=== PATIENT | female | born 1965 | race Caucasian/White ===

== ENCOUNTER 2019-04-03 15:23 | Outpatient (CLI) | payer BC, OTHER, SELFPAY ==
--- NOTE | ~2019-04-03 | XR_ITS ---
EXAMINATION: XR chest 2V EXAM DATE: 04/03/2019 15:52 INDICATION: Dyspnea. Right-sided chest pain. TECHNIQUE: Frontal and lateral projections of the chest obtained and reviewed. Comparison is made to prior examination from 04/17/2017. FINDINGS: Moderate chronic hyperinflation. The lungs are clear. There are no pleural effusions. Th e cardiomediastinal silhouette is within normal limits. There is no pneumothorax suspected. The bon es and soft tissues are unremarkable. IMPRESSION: 1. No acute cardiopulmonary findings. 2. Hyperinflation. Reviewed, dictated and finalized at location A. ENTER GENERAL
--- NOTE | 2019-04-03 15:57 | ECG_ITS ---
Measurements Intervals [place] Rate: 64 P: 76 MD: 144 QRS: 81 QRSD: 82 T: 59 QT: 388 QTc: 401 Interpretive Statements SINUS RHYTHM NORMAL ECG Electronically Signed On 04-03-2019 16:26:14 COMMUNITY ENGAGEMENT COORDINATOR by Jean Sims D.O.
== END 2019-04-03 15:24 | disposition home or self-care (01) ==
PROVIDERS: PCP Family Medicine; Visit Provider Nurse Practitioner Family
DX: Z13.1 Encounter for screening for diabetes mellitus (principal); Z13.220 Encounter for screening for lipoid disorders; R07.9 Chest pain, unspecified; R06.00 Dyspnea, unspecified; R53.82 Chronic fatigue, unspecified; R63.4 Abnormal weight loss
CPT/HCPCS: 71046; 93005

== ENCOUNTER 2019-04-04 07:36 | Outpatient (CLI) | payer BC, OTHER, SELFPAY ==
[2019-04-04 09:19] LABS: Basophils Absolute Auto 0.1 K/mm3 (0.0-0.1); Basophils Percent Auto 0.8 % (0.2-1.2); Eosinophils Absolute Auto 0.1 K/mm3 (0-0.3); Eosinophils Percent Auto 1.6 % (0-4.4); Hematocrit 42.5 % (37.0-47.0); Hemoglobin 13.8 g/dL (12.0-15.0); Immature Granulocyte Absolute 0.02 K/mm3 (0.00-0.031); Immature Granulocyte Percent A 0.3 % (0-0.5); Lymphocytes Absolute Auto 2.04 K/mm3 (0.9-3.2); Lymphocytes Percent Auto 32.2 % (18.3-44.2); Mean Corpuscular HGB Conc 32.5 g/dl (32-36); Mean Corpuscular Hemoglobin 30.1 pg (26-34); Mean Corpuscular Volume 92.8 fl (80-100); Mean Platelet Volume 12.3 fl (7.4-10.4); Monocytes Absolute Auto 0.6 K/mm3 (0.1-0.6); Monocytes Percent Auto 9.6 % (2.6-8.5); Neutrophils Absolute Auto 3.5 K/mm3 (1.3-6.7); Neutrophils Percent Auto 55.5 % (45.5-73.1); Platelet Count Result 179 k/mm3 (150-375); Red Blood Count 4.58 M/mm3 (4.2-5.4); Red Cell Distribution Width 12.5 % (11.5-14.5); White Blood Count 6.3 K/mm3 (4.5-10.0)
[2019-04-04 09:32] LABS: Blood Urea Nitrogen 17 mg/dL (7-17); Calcium 9.4 mg/dL (8.4-10.2); Carbon Dioxide 31 mmol/L (22-30); Chloride 96 mmol/L (98-107); Cholesterol 190 mg/dL (0-200); Estimated Glomerular Filt Rate > 60; Glucose 87 mg/dL (65-105); HDL Direct 53 mg/dL; Potassium 4.2 mmol/L (3.4-5.0); Sodium 141 mmol/L (137-145); Triglycerides 49 mg/dL (<150)
[2019-04-04 09:43] LABS: LDL Cholesterol Direct 115 mg/dL
[2019-04-04 11:38] LABS: Vitamin D 25 Hydroxy 46.6 ng/mL
== END 2019-04-04 07:37 | disposition home or self-care (01) ==
PROVIDERS: PCP Family Medicine; Visit Provider Nurse Practitioner Family
DX: Z13.1 Encounter for screening for diabetes mellitus (principal); R53.82 Chronic fatigue, unspecified; R63.4 Abnormal weight loss; Z13.220 Encounter for screening for lipoid disorders
CPT/HCPCS: 36415; 80048; 80061; 82306; 82607; 84443; 85025

== ENCOUNTER 2019-04-29 14:19 | Outpatient (CLI) | payer BC, OTHER, SELFPAY ==
--- NOTE | 2019-04-30 11:44 | WPDPFTINT ---
PFT Interpretation PFT Interpretation: This PFT met all criteria for ATS standards and reproducibility FEV/FVC post bronchodilator 70% of predicted FEV1 96% FVC 104% TLC 114% RV 124% RV/TLC 40% DLCO 100% when adjusted for alveolar volume but not adjusted for hemoglobin Flow volume loops were normal. Impression: Borderline small airway obstruction may be present, mild air trapping. Clinical correlation is advised.
== END 2019-04-29 14:20 | disposition home or self-care (01) ==
PROVIDERS: PCP Family Medicine; Visit Provider Nurse Practitioner Family
DX: R09.89 Other specified symptoms and signs involving the circulatory and respiratory systems (principal)
CPT/HCPCS: 94060; 94726; 94729

== ENCOUNTER 2019-10-10 16:31 | Outpatient (CLI) | payer BC, OTHER, SELFPAY ==
--- NOTE | ~2019-10-10 | MM_ITS ---
EXAMINATION: MM screening scotty BI w rickie HISTORY: Screening mammogram, family history of breast cancer in her mother. TECHNIQUE: Craniocaudal and mediolateral oblique 3-D tomosynthesis images were obtained and synthetic 2-D images were generated. CAD analysis was submitted and interpreted. COMPARISON: 09/30/2018, 09/07/2018, 08/17/2017 BREAST PARENCHYMAL COMPOSITION: The breasts are heterogeneously dense, which may obscure small masses . FINDINGS: There is no evidence of suspicious mass, calcification, or architectural distortion to sugg est malignancy in either breast. There has been no suspicious interval change. IMPRESSION: 1. No mammographic evidence of malignancy. 2. Recommend routine screening mammography in one year. BI-RADS Category 1: Negative Reviewed, dictated and finalized at location A.
== END 2019-10-10 16:32 | disposition home or self-care (01) ==
LOC: ANHIMG 16:38
PROVIDERS: PCP Family Medicine
DX: Z12.31 Encounter for screening mammogram for malignant neoplasm of breast (principal)
CPT/HCPCS: 77063; 77067

== ENCOUNTER 2020-02-27 06:54 | Outpatient (NON) | payer BC, OTHER, SELFPAY ==
[2020-02-27 22:46] LABS: SARS-CoV-2 RNA PCR Negative
== END 2020-02-27 06:55 ==
LOC: ANHCOVIDDT 06:55
PROVIDERS: PCP Family Medicine; Visit Provider Physician Assistant Medical
DX: Z20.822 Contact with and (suspected) exposure to COVID-19 (principal); R68.89 Other general symptoms and signs
CPT/HCPCS: C9803; U0003; U0005

== ENCOUNTER → 2020-03-12 11:14 | Outpatient (CLI) | payer BC, OTHER, SELFPAY ==
--- NOTE | ~2020-03-12 | XR_ITS ---
EXAMINATION: XR chest 2V DATE: 03/12/2020 11:32 INDICATION: Acute upper respiratory infection. TECHNIQUE: Frontal and lateral views of the chest were obtained. COMPARISON: Chest 2 views 04/03/2019 FINDINGS: The chest demonstrates clear lungs without pneumonia, pleural effusion, or pneumothorax. Th e heart size is normal. IMPRESSION: 1. No acute cardiopulmonary disease. Reviewed, dictated and finalized at location A. ECTION WARDEN
== END ==
PROVIDERS: PCP Family Medicine; Visit Provider Nurse Practitioner Family
DX: J06.9 Acute upper respiratory infection, unspecified (principal)
CPT/HCPCS: 71046

== ENCOUNTER 2020-03-17 06:52 | Outpatient (NON) | payer BC, OTHER, SELFPAY ==
[2020-03-18 00:37] LABS: SARS-CoV-2 RNA PCR Positive
== END 2020-03-17 06:53 ==
LOC: ANHCOVIDDT 06:53
PROVIDERS: PCP Family Medicine; Visit Provider Nurse Practitioner Family
DX: U07.1 COVID-19 (principal)
CPT/HCPCS: C9803; U0003; U0005

== ENCOUNTER 2020-05-11 00:57 | Day surgery (SDC) | payer BC, OTHER, SELFPAY ==
--- NOTE | ~2020-05-11 | XR_ITS ---
XR shoulder RT 1V 05/11/2020 11:51 Indication: Postop manipulation and injection of the right shoulder Procedure: AP portable view of the right shoulder Comparison: 01/29/2020 Findings: No fracture, subluxation or dislocation. Anatomic alignment. Visualized lung parenchyma unr emarkable. No lytic or blastic lesions. Impression: 1: No significant bone or joint abnormality. Reviewed, dictated and finalized at location B. Impression: 1: No significant bone or joint abnormality.
--- NOTE | 2020-05-11 09:10 | WPDANESEPPF ---
Anes - Initial Pre Proc Eval Procedure: Operation Date: 05/11/20 11:30 Proposed Procedures p Evaluation Under Anesthesia With Manipulation And Injection To The Right Shoulder - Srikanth Kaminski MD Date/Time: 05/11/20 09:10 Surgeon: Srikanth Kaminski MD Pre Op Diagnosis: Right Frozen Shoulder Patient Data Age: 55 Gender: F Height: 1.65 m Weight: 54.5 kg Allergies Allergy/AdvReac Type Severity Reaction Status Date / Time No Known Allergies Allergy Verified 05/01/20 13:57 Home Medications Medication Instructions Recorded Confirmed Type estradiol 0.5 mg tablet 0.5 mg PO DAILY 01/29/20 05/11/20 History progesterone micronized 100 mg 100 mg PO 01/29/20 05/06/20 History capsule multivit with min-folic acid 2 tablet PO DAILY 05/01/20 05/11/20 History [Multivitamin Gummies] Patient hx anesthesia problems: none Family hx anesthesia problems: none PMFSH Past Medical History Medical History Adhesive capsulitis of right shoulder Surgical History Surgical History (Updated 05/11/20 @ 09:11 by Michael Sanders MD) H/O microdiscectomy H/O tubal ligation Family History Family History Other Cerebrovascular accident Family history of malignant neoplasm of breast Hypertension Social History Social History Smoking status: Never smoker Alcohol intake: current Drinks per week: 6 Substance use: current Substance use type: does not use Living arrangements: with family Additional occupation/education comments: [employer] Gender identity (if verbalized by the patient): Female Spiritual care concerns: No Anes - Eval Final PreProcedure Day of Procedure 05/11/20 09:10 Patient weight: normal Heart: regular rate and rhythm Lungs: clear to auscultation and normal air movement Airway: Mallampati scale class II Neurological: alert and oriented Last oral intake: >/= 8 hours ASA classification: I Emergent: no Anesthetic plan: proceed Anesthesia type and monitoring: general GIVS Informed Consent: The patient's anesthetic plan and its attendant risks and benefits were discussed with the patient/family/POA. Questions were solicited and answers provided to the satisfaction of the patient/family/POA.
[2020-05-11] MEDS: ACETAMINOPHEN 500 MG TABLET 1000 MG PO (09:59)
[2020-05-11] MEDS: LACTATED RINGERS 1,000 ML 30 ML IV CONT (10:10)
[2020-05-11] MEDS: KETOROLAC 15 MG/ML VIAL (*BKC) IV PUSH (10:11)
[2020-05-11 10:16] VITALS: BP 119/62; PULSE 81; TEMP 36.6; O2SAT 100
--- NOTE | 2020-05-11 10:44 | WPDHPUPDATE1 ---
History and Physical Update Update Date/Time: 05/11/20 10:44 History and Physical has been reviewed, including an updated exam of the patient. There are NO changes in the patient's condition. Risks, benefits, and alternatives have been discussed and questions answered. Patient agrees to proceed with procedure.
[2020-05-11] MEDS: SCOPOLAMINE 1.5 MG PATCH TRANSDERM (10:50)
[2020-05-11] MEDS: TRIAMCINOLONE ACET INJ SUSP 50 MG/5 ML VIAL 20 MG IM (11:05)
[2020-05-11 11:34] VITALS: BP 81/45; PULSE 74; RESP 14; O2SAT 98
--- NOTE | 2020-05-11 11:36 | PM.PROC ---
Procedure Note - Detailed Date of procedure: 05/11/20 Pre-op diagnosis: Right Frozen Shoulder Post-op diagnosis: same Procedure performed: Evaluation under anesthesia with manipulation right shoulder. Intra-articular injection. Description of procedure: Patient was identified and proper side identified. She was taken back to the operating room and left on the patient gurney. After general anesthetic induction, the right shoulder was examined. She had passive elevation to about 120?. With the shoulder abducted 90? she had external rotation of about 30? internal rotation of about 30?. After a gentle manipulation taking the shoulder through range of motion, the elevation was now 170? and with the shoulder abducted 90? external rotation was 80?, internal rotation 80?. The shoulder was then injected intra-articularly from a posterior approach using 2 mL of 1% lidocaine and 20 mg of Kenalog without incident. She tolerated the procedure well. She was awakened and taken back to the recovery area in stable condition. There were no known intraoperative complications. Anesthesia: other (Mask general) Surgeon: Srikanth Kaminski MD Estimated blood loss (mL): 0 Drains: No Packing: No Pathology: none sent Complications: No immediate complications Condition: stable Disposition: same day
[2020-05-11 12:00] VITALS: BP 99/59; PULSE 66; O2SAT 97
[2020-05-11] MEDS: fentaNYL CITRATE INJ (*CRX) 100 MCG/2 ML VIAL 25 MCG IV PUSH ×4 (12:00→12:17)
[2020-05-11] MEDS: oxyCODONE HCL (*CRX) 5 MG TAB IR PO (12:20)
[2020-05-11 12:30] VITALS: BP 98/52; PULSE 62; RESP 14; O2SAT 98
[2020-05-11 13:00] VITALS: BP 90/55; PULSE 70; RESP 16; O2SAT 100
== END 2020-05-11 13:12 | disposition home or self-care (01) ==
PROVIDERS: PCP Family Medicine; Visit Provider Orthopaedic Surgery
PROC: (CPT 23700; principal; 2020-05-11 11:30)
DX: M75.01 Adhesive capsulitis of right shoulder (principal)
CPT/HCPCS: 23700; 73020; A9270; J1885; J2250; J2405; J2704; J3010; J3301; J7120

== ENCOUNTER → 2020-09-04 11:37 | Outpatient (CLI) | payer BC, OTHER, SELFPAY ==
--- NOTE | ~2020-09-04 | XR_ITS ---
XR chest 2V DATE: 09/04/2020 12:06 INDICATION: Cough TECHNIQUE: 2 views COMPARISON: 03/04/2020 2 view chest FINDINGS: Normal heart size. No hilar or mediastinal enlargement. Bilateral hyperinflation. No pulmonary infiltrate or consolidation, pleural effusion or pulmonary vas cular congestion or pneumothorax. Included skeletal structures are unremarkable. IMPRESSION: Bilateral hyperinflation; no active cardiopulmonary disease Reviewed, dictated and finalized at location A.
== END ==
PROVIDERS: PCP Family Medicine; Visit Provider Family Medicine
DX: R05 Cough (principal); R91.8 Other nonspecific abnormal finding of lung field
CPT/HCPCS: 71046

== ENCOUNTER 2020-10-16 08:14 | Outpatient (CLI) | payer BC, OTHER, SELFPAY ==
--- NOTE | ~2020-10-16 | MM_ITS ---
EXAMINATION: MM screening scotty BI w rickie HISTORY: Screening TECHNIQUE: Craniocaudal and mediolateral oblique 3-D tomosynthesis images were obtained and synthetic 2-D images were generated. CAD analysis was submitted and interpreted. COMPARISON: Comparison to multiple prior studies sequentially, with oldest reviewed study dated 11/14. BREAST PARENCHYMAL COMPOSITION: The breasts are heterogeneously dense, which may obscure small masses . FINDINGS: There is no evidence of suspicious mass, calcification, or architectural distortion to sugg est malignancy in either breast. There has been no suspicious interval change. IMPRESSION: 1. No mammographic evidence of malignancy. 2. Recommend routine screening mammography in one year. BI-RADS Category 1: Negative Reviewed, dictated and finalized at location A.
== END 2020-10-16 08:15 | disposition home or self-care (01) ==
LOC: ANHIMG 08:16
PROVIDERS: PCP Family Medicine
DX: Z12.31 Encounter for screening mammogram for malignant neoplasm of breast (principal)
CPT/HCPCS: 77063; 77067

== ENCOUNTER 2021-12-16 15:51 | Outpatient (CLI) | payer BC, OTHER, SELFPAY ==
--- NOTE | ~2021-12-16 | DEXA_ITS ---
Bone Density Report Name: SUREKHA JUSTIN Age: 56 Sex: Female Ethnicity: White Date of : 1965 Indication: postmenopausal; screening for osteoporosis; Referring Provider: SHANNAN, LOGAN Study: Bone densitometry was performed. Exam Date: December 16, 2021 Accession number: [id number] Bone Density: Region BMD T-score Z-score Classification AP Spine(L1-L4) 1.106 0.5 1.8 Normal Femoral Neck (Left) 0.695 -1.4 -0.2 Osteopenia Total Hip (Left) 0.857 -0.7 0.1 Normal Femoral Neck (Right) 0.706 -1.3 -0.1 Osteopenia Total Hip (Right) 0.864 -0.6 0.2 Normal Total Hip Mean 0.860 -0.7 0.2 Normal World Health Organization criteria for BMD impression classify patients as: Normal (T-score at or above -1.0), Osteopenia (T-score between -1.0 and -2.5), or Osteoporosis (T-score at or below -2.5). 10-year Fracture Risk(1): Major Osteoporotic Fracture 6.5% Hip Fracture 0.5% Reported Risk Factors: [place] (), Neck BMD=0.695, BMI=21.0 (1) FRAX(R) Version 3.08. Fracture probability calculated for an untreated patient. Fracture probability may be lower if the patient has received treatment. Clinical Information Provided by Patient: Patient maximum height was 65 Menopause Age: 49 No regular weight bearing exercise Drinks caffeinated beverages Onset of menses at age 11 Number of children 2 Impression: The patient has low bone mass, based on the Left Femoral Neck T-score. The patient has an estimated ten-year risk of hip fracture of 0.5% and an estimated ten-year risk of major fracture of 6.5%, based on the WHO FRAX algorithm. Discussion: BONE DENSITY IS LOW AT ONE OR MORE SKELETAL SITES. This patient's lowest T-score is low at one or more skeletal sites. It meets the World Health Organization's (WHO) criteria for ?low bone mass? (T-score between -1.0 and -2.5). The patient's 10-year risk of fracture as calculated by FRAX is less than the threshold where pharmacological therapy is recommended by the National Osteoporosis Foundation (NOF). However, all treatment decisions require clinical judgment and consideration of individual patient factors, including patient preferences, comorbidities, previous drug use, risk factors not captured in the FRAX model (e.g., frailty, falls, vitamin D deficiency, increased bone turnover, interval significant decline in bone density) and possible under or overestimation of fracture risk by FRAX. The patient should follow a healthful lifestyle (good nutrition with adequate calcium and vitamin D, and appropriate weight-bearing exercise). Follow-Up: Consider repeating this study in 2 to 3 years to reassess this patient's status, or sooner if there is some new clinical indication. Reported by: RAUL on 12/16/2021 4:38:00 PM.
--- NOTE | ~2021-12-16 | MM_ITS ---
EXAMINATION: MM screening scotty BI w rickie HISTORY: Screening TECHNIQUE: Craniocaudal and mediolateral oblique 3-D tomosynthesis images were obtained and synthetic 2-D images were generated. CAD analysis was submitted and interpreted. COMPARISON: Comparison to multiple prior studies sequentially, with oldest reviewed study dated 03/25. BREAST PARENCHYMAL COMPOSITION: The breasts are heterogeneously dense, which may obscure small masses . FINDINGS: There is no evidence of suspicious mass, calcification, or architectural distortion to sugg est malignancy in either breast. There has been no suspicious interval change. IMPRESSION: 1. No mammographic evidence of malignancy. 2. Recommend routine screening mammography in one year. BI-RADS Category 1: Negative Reviewed, dictated and finalized at location A.
== END 2021-12-16 15:52 | disposition home or self-care (01) ==
PROVIDERS: PCP Family Medicine; Visit Provider Obstetrics & Gynecology
DX: Z12.31 Encounter for screening mammogram for malignant neoplasm of breast (principal); Z78.0 Asymptomatic menopausal state; M85.89 Other specified disorders of bone density and structure, multiple sites
CPT/HCPCS: 77063; 77067; 77080

== ENCOUNTER → 2022-06-03 08:23 | Outpatient (CLI) | payer BC, SELFPAY ==
--- NOTE | ~2022-06-03 | US_ITS ---
EXAMINATION: US pelvic complete DATE: 06/03/2022 08:41 INDICATION: Uterine hypertrophy. Postmenopausal. Comparison:No prior studies for comparison. TECHNIQUE: Multiple transabdominal and endovaginal sonographic images of the pelvis performed. FINDINGS: The uterus measures 6.9 x 3.3 x 3.9 cm. The endometrial complex measures 6 mm. The right ovary is not visualized. Left ovary measures 2.2 x 1.1 x 1.2 cm. There is normal Doppler si gnal in the left ovary. There is no free fluid in the pelvis. There are no abnormal masses seen on either side. IMPRESSION: 1. Thickened endomtrial complex. The differential diagnosis includes endometrial hyperplasia, polyp a nd carcinoma. Biopsy is recommended. Reviewed, dictated and finalized at location A. IMPRESSION: 1. Thickened endomtrial complex. The differential diagnosis includes endometria l hyperplasia, polyp and carcinoma. Biopsy is recommended.
== END ==
PROVIDERS: PCP Advanced Practice Midwife; Visit Provider Advanced Practice Midwife
DX: N85.2 Hypertrophy of uterus (principal); Z78.0 Asymptomatic menopausal state
CPT/HCPCS: 76856

== ENCOUNTER 2022-06-13 01:25 | Day surgery (SDC) | payer BC, SELFPAY ==
[2022-06-07 09:57] VITALS: BMI 20.7
--- NOTE | 2022-06-07 10:01 | PC.NURSE ---
Report to the Outpatient Waiting Room, entrance under the green pavilion located off [facility], at time 1000 on date 06/13/22. Planned Procedure Time: 1200. Time changes happen often and if your time is changed the preop area will call you the afternoon before. - You and your visitor will be asked to self-screen and do not enter if you have any COVID symptoms. - A mask is optional within the hospital at this time. Patients may have clear liquids (water, carbonated beverages, clear teas, apple juice) until 3 hours prior to surgery with a maximum of 20 ounces. - No food from midnight until time of surgery Take the following medications with a SIP of water the morning of surgery: BUPROPION DO NOT STOP ANY OF YOUR OTHER PRESCRIPTION MEDICATIONS PRIOR TO SURGERY EXCEPT THE FOLLOWING Medications to discontinue per physician: N/A Date to take last dose: N/A Please no make-up, nail ghanaian, hairspray, perfume, deodorant, or body powder the day of surgery. No jewelry (including any body piercings) or valuables the day of surgery, leave them at home. Please take a shower or bath the night before, or the morning of, surgery with an antibacterial soap. Wear comfortable, loose fitting clothing. - Jewelry must be removed prior to entering the operating room. Rings and piercings that are not removed may be cut off. - The hospital will not accept responsibility for valuables. - Please leave all valuables, including medications, at home the day of surgery. If you are going home after surgery, a licensed city route driver must drive you home. - NO public transportation without another adult if you receive anesthesia. - We recommend that an adult stay with you for 24 hours following discharge. - We also recommend that you do not drive, make important decision, drink alcoholic beverages, or take any drugs that were not prescribed by your health care provider for at least 24 hours after your discharge time. Follow any additional instructions given to you from your surgeon. If you or anyone in your household have experienced Covid symptoms in the past week, please notify your surgeon or the nurse liaison at the phone number below for possible testing. Telephone instructions given to PT - SUREKHA JUSTIN and asked if any additional questions and then verbalized understanding. Patient advised to call surgeon office or pre surgery nurse liaison [phone] if any additional questions.
--- NOTE | 2022-06-13 08:10 | WPDHPUPDATE1 ---
History and Physical Update Update Date/Time: 06/13/22 08:10 History and Physical has been reviewed, including an updated exam of the patient. There are NO changes in the patient's condition. Risks, benefits, and alternatives have been discussed and questions answered. Patient agrees to proceed with procedure.
--- NOTE | 2022-06-13 08:10 | PM.HPGS ---
History of Present Illness History of Present Illness Consent: Risks, benefits, and alternatives have been discussed and questions answered. Patient agrees to proceed with procedure. Chief complaint: thick endometrial lining Narrative: Jessica Patterson is a 57 year old female with an incidental finding on ultrasound of thickened endometrium. Patient denies vaginal bleeding. Recommend to proceed with further workup with hysteroscopy D&C. Risks of infection, bleeding, perforation, and possible pathology were reviewed the day of surgery. Patient voices understanding and agrees to proceed. Review of Systems Review of Systems: not repeated day of surgery; patient states no changes in status PMFSH Past Medical History Medical History (Updated 06/13/22 @ 08:14 by Radha Merrill MD) Depression with anxiety (normal spontaneous vaginal delivery) x2 Surgical History Surgical History (Updated 06/13/22 @ 08:13 by Radha Merrill MD) Adhesive capsulitis of right shoulder Evaluation under anesthesia with manipulation May 11, 2020 H/O microdiscectomy H/O tubal ligation History of endometrial ablation Family History Family History Father Aortic valve replaced Hypertension RLS (restless legs syndrome) Mother Cancer Sibling No problems noted. Sibling , suicide No problems noted. Other Cerebrovascular accident Family history of malignant neoplasm of breast Social History Social History Smoking status: Never smoker Second hand tobacco smoke exposure: Yes Alcohol intake: current Drinks per week: 6 Alcohol use details: occasional Substance use: never Substance use type: does not use Living arrangements: with family Occupation/Education: occupation Additional occupation/education comments: [employer] Gender identity (if verbalized by the patient): Female Spiritual care concerns: No Meds Home Medications and Allergies Home Medications Medication Instructions Recorded Confirmed Type bupropion HCl 150 mg 24 hr tablet, 150 mg PO QAM #90 tabs 10/12/21 06/07/22 Rx extended release (Wellbutrin XL) estradiol-norethindrone acet 1 1 tablet PO DAILY 06/07/22 06/07/22 History mg-0.5 mg tablet Allergies Allergy/AdvReac Type Severity Reaction Status Date / Time No Known Allergies Allergy Verified 06/07/22 09:55 Exam Const: General: healthy appearing and alert Orientation/consciousness: patient oriented x3 Resp: Effort & Inspection: normal respiratory effort Auscultation: clear to auscultation bilaterally Cardio: Rate: regular rate Rhythm: regular rhythm GI: GI Palp: Yes Soft to palpation, No Tenderness to palpation present (GI) and No Palpable mass present : External Female Exam: normal external appearance Speculum Exam - Vagina: normal appearance of the vagina and normal vaginal discharge Speculum Exam - Cervix: normal appearance of the cervix Bimanual exam- vagina & uterus: uterine size normal and consistency normal Bimanual Exam- Adnexa, other: normal adnexae and No adnexal tenderness Neuro: General: patient oriented x3 Assessment and Plan Assessment and plan (1) Thickened endometrium: Code(s): R93.89 - Abnormal findings on diagnostic imaging of other specified body structures Status: Acute Assessment and Plan: plan to proceed with D&C hysteroscopy
[2022-06-13 10:19] VITALS: BP 117/60; PULSE 77; RESP 16; TEMP 37.5; O2SAT 100
[2022-06-13] MEDS: ACETAMINOPHEN 500 MG TABLET 1000 MG PO (10:39)
[2022-06-13] MEDS: LACTATED RINGERS 1,000 ML 30 ML IV CONT ×2 (10:40→11:56)
--- NOTE | 2022-06-13 11:16 | WPDANESEPP ---
Anes - Eval Pre Procedure Procedure: Operation Date: 06/13/22 12:00 Proposed Procedures p Hysteroscopy, Dilation and Curettage - Radha Merrill MD Date/Time: 06/13/22 11:16 Pre Op Diagnosis: thick endometrial lining Patient Data Age: 57 Gender: F Height: 1.65 m Weight: 55.9 kg Last Vital Signs Temp 37.5 C 06/13/22 10:19 Pulse 77 06/13/22 10:19 Resp 16 06/13/22 10:19 BP 117/60 06/13/22 10:19 Pulse Ox 100 06/13/22 10:19 O2 Del Method Room Air 06/13/22 10:19 Allergies Allergy/AdvReac Type Severity Reaction Status Date / Time No Known Allergies Allergy Verified 06/13/22 10:47 Home Medications Medication Instructions Recorded Confirmed Type bupropion HCl 150 mg 24 hr tablet, 150 mg PO QAM #90 tabs 10/12/21 06/13/22 Rx extended release (Wellbutrin XL) estradiol-norethindrone acet 1 1 tablet PO DAILY 06/07/22 06/13/22 History mg-0.5 mg tablet Patient hx anesthesia problems: none Family hx anesthesia problems: none Results Review: All pre-operative results and documents have been reviewed as part of the pre-operative evaluation. [facility] Past Medical History Medical History (Updated 06/13/22 @ 08:14 by Radha Merrill MD) Depression with anxiety (normal spontaneous vaginal delivery) x2 Surgical History Surgical History (Updated 06/13/22 @ 08:13 by Radha Merrill MD) Adhesive capsulitis of right shoulder Evaluation under anesthesia with manipulation May 11, 2020 H/O microdiscectomy H/O tubal ligation History of endometrial ablation Family History Family History Father Aortic valve replaced Hypertension RLS (restless legs syndrome) Mother Cancer Sibling No problems noted. Sibling , suicide No problems noted. Other Cerebrovascular accident Family history of malignant neoplasm of breast Social History Social History Smoking status: Never smoker Second hand tobacco smoke exposure: Yes Alcohol intake: current Drinks per week: 6 Alcohol use details: occasional Substance use: never Substance use type: does not use Living arrangements: with family Occupation/Education: occupation Additional occupation/education comments: [employer] Gender identity (if verbalized by the patient): Female Spiritual care concerns: No Exam Day of Procedure 06/13/22 11:16
--- NOTE | 2022-06-13 11:24 | WPDANESEPPF ---
Anes - Initial Pre Proc Eval Procedure: Operation Date: 06/13/22 12:00 Proposed Procedures p Hysteroscopy, Dilation and Curettage - Radha Merrill MD Date/Time: 06/13/22 11:24 Surgeon: Radha Merrill MD Pre Op Diagnosis: thick endometrial lining Patient Data Age: 57 Gender: F Height: 1.65 m Weight: 55.9 kg Last Vital Signs Temp 37.5 C 06/13/22 10:19 Pulse 77 06/13/22 10:19 Resp 16 06/13/22 10:19 BP 117/60 06/13/22 10:19 Pulse Ox 100 06/13/22 10:19 O2 Del Method Room Air 06/13/22 10:19 Allergies Allergy/AdvReac Type Severity Reaction Status Date / Time No Known Allergies Allergy Verified 06/13/22 10:47 Home Medications Medication Instructions Recorded Confirmed Type bupropion HCl 150 mg 24 hr tablet, 150 mg PO QAM #90 tabs 10/12/21 06/13/22 Rx extended release (Wellbutrin XL) estradiol-norethindrone acet 1 1 tablet PO DAILY 06/07/22 06/13/22 History mg-0.5 mg tablet Patient hx anesthesia problems: none Family hx anesthesia problems: none Results Review: All pre-operative results and documents have been reviewed as part of the pre-operative evaluation. [facility] Past Medical History Medical History (Updated 06/13/22 @ 08:14 by Radha Merrill MD) Depression with anxiety (normal spontaneous vaginal delivery) x2 Surgical History Surgical History (Updated 06/13/22 @ 08:13 by Radha Merrill MD) Adhesive capsulitis of right shoulder Evaluation under anesthesia with manipulation May 11, 2020 H/O microdiscectomy H/O tubal ligation History of endometrial ablation Family History Family History Father Aortic valve replaced Hypertension RLS (restless legs syndrome) Mother Cancer Sibling No problems noted. Sibling , suicide No problems noted. Other Cerebrovascular accident Family history of malignant neoplasm of breast Social History Social History Smoking status: Never smoker Second hand tobacco smoke exposure: Yes Alcohol intake: current Drinks per week: 6 Alcohol use details: occasional Substance use: never Substance use type: does not use Living arrangements: with family Occupation/Education: occupation Additional occupation/education comments: [employer] Gender identity (if verbalized by the patient): Female Spiritual care concerns: No Anes - Eval Final PreProcedure Day of Procedure 06/13/22 11:24 Patient weight: normal Heart: regular rate and rhythm Lungs: clear to auscultation and normal air movement Airway: Mallampati scale class II Neurological: alert and oriented Last oral intake: >/= 8 hours ASA classification: I Emergent: no Anesthetic plan: proceed Anesthesia type and monitoring: general GIVS Results Review: All pre-operative results and documents have been reviewed as part of the pre-operative evaluation. Informed Consent: The patient's anesthetic plan and its attendant risks and benefits were discussed with the patient/family/POA. Questions were solicited and answers provided to the satisfaction of the patient/family/POA.
[2022-06-13] MEDS: KETOROLAC 30 MG/ML VIAL (*BKC) IV PUSH (11:30)
[2022-06-13] MEDS: LIDOCAINE HCL 1% LOCAL INJ 20 ML VIAL 10 ML INFILTRATE (11:46)
--- NOTE | 2022-06-13 11:51 | P.OP_ITS ---
Procedure Note - Detailed Date of Procedure 06/13/22 Pre-op Diagnosis thick endometrial lining Post-op Diagnosis Same Procedure Performed Hysteroscopy Surgeon Radha Merrill MD Anesthesia MAC and Local Findings cervix is very stenotic Description of Procedure The patient is taken to the operating room and placed under anesthesia in the dorsal lithotomy position. She was prepped and draped in usual sterile fashion. [place] speculum was placed in the vagina and the cervix grasped on the anterior lip with a tenaculum. The cervix is injected in each quadrant with 1% lidocaine. The uterus is attempted to be sounded and severe stenosis is noted at approximately 1cm. Os Finders are used and the 4/5 dilator was used to open the cervical canal. The uterus sounded to 8cm. The diagnostic hysteroscope was placed and did appear to be a false passage with a small perforation fundal. The hysteroscope was slowly retracted and no obvious proper canal was noted. All instruments were removed. The fluid deficit is only 90cc. The patient was awakened from anesthesia and taken to recovery in stable condition. Estimated Blood Loss 5 Drains No Packing No Pathology None sent Complications Other complications ( Uterine perforation) Condition Stable Disposition PACU
[2022-06-13 11:56] VITALS: BP 97/58; PULSE 92; RESP 12; O2SAT 100
[2022-06-13 12:20] VITALS: BP 108/64; PULSE 92; RESP 20
[2022-06-13 12:50] VITALS: BP 128/70; PULSE 72; RESP 20
[2022-06-13 13:20] VITALS: BP 127/77; PULSE 74; RESP 20
== END 2022-06-13 13:25 | disposition home or self-care (01) ==
PROVIDERS: PCP Family Medicine; Visit Provider Obstetrics & Gynecology Gynecology
PROC: 0U5B8ZZ Destruction of Endometrium, Via Natural or Artificial Opening Endoscopic (ICD-10-PCS; CPT 58563; principal; 2022-06-13 12:00)
DX: R93.89 Abnormal findings on diagnostic imaging of other specified body structures (principal); N88.2 Stricture and stenosis of cervix uteri; N99.71 Accidental puncture and laceration of a genitourinary system organ or structure during a genitourinary system procedure; F41.8 Other specified anxiety disorders
CPT/HCPCS: 58558; A9270; J1100; J1200; J1885; J2250; J2405; J2704; J3010; J7120

== ENCOUNTER 2022-07-25 00:11 | Day surgery (SDC) | payer BC, SELFPAY ==
[2022-07-18 14:52] VITALS: BMI 21.2
--- NOTE | 2022-07-18 14:58 | PC.NURSE ---
Report to the Outpatient Waiting Room, entrance under the green pavilion located off [facility], at time _0815__ on date __07/25/22_. Planned Procedure Time: _1015_. Time changes happen often and if your time is changed the preop area will call you the afternoon before. - You and your visitor will be asked to self-screen and do not enter if you have any COVID symptoms. - A mask is optional within the hospital at this time. Patients may have clear liquids (water, carbonated beverages, clear teas, apple juice) until 3 hours prior to surgery with a maximum of 20 ounces. - No food from midnight until time of surgery - Infants may have breast milk until 4 hours before surgery, infant formula 6 hours prior to surgery. - Children will be allowed to drink immediately following surgery. If applicable, please bring a bottle or sippy cup to assist with drinking. Juice, water, soda, and popsicles are readily available. For infants on formula, please bring formula the day of surgery. Pacifiers are allowed. Take the following medications with a SIP of water the morning of surgery: ___NONE DO NOT STOP ANY OF YOUR OTHER PRESCRIPTION MEDICATIONS PRIOR TO SURGERY ?EXCEPT THE FOLLOWING Medications to discontinue per physician NONE Date to take last dose Please no make-up, nail albanian, hairspray, perfume, deodorant, or body powder the day of surgery. No jewelry (including any body piercings) or valuables the day of surgery, leave them at home. Please take a shower or bath the night before, or the morning of, surgery with an antibacterial soap. Wear comfortable, loose fitting clothing. Children are encouraged to wear pajamas. - Jewelry must be removed prior to entering the operating room. Rings and piercings that are not removed may be cut off. - The hospital will not accept responsibility for valuables. - Please leave all valuables, including medications, at home the day of surgery. If you are going home after surgery, a licensed trailer tank truck driver must drive you home. - NO public transportation without another adult if you receive anesthesia. - We recommend that an adult stay with you for 24 hours following discharge. - We also recommend that you do not drive, make important decision, drink alcoholic beverages, or take any drugs that were not prescribed by your health care provider for at least 24 hours after your discharge time. For Pediatric surgeries, we recommend two adults accompany the child home. Follow any additional instructions given to you from your surgeon. If you or anyone in your household have experienced Covid symptoms in the past week, please notify your surgeon or the nurse liaison at the phone number below for possible testing. Telephone instructions given to _PATIENT__and asked if any additional questions and then verbalized understanding. Patient advised to call surgeon office or pre surgery nurse liaison [phone] if any additional questions.
--- NOTE | 2022-07-25 07:34 | WPDHPUPDATE1 ---
History and Physical Update Update Date/Time: 07/25/22 07:34 History and Physical has been reviewed, including an updated exam of the patient. There are NO changes in the patient's condition. Risks, benefits, and alternatives have been discussed and questions answered. Patient agrees to proceed with procedure.
--- NOTE | 2022-07-25 07:34 | PM.HPGS ---
History of Present Illness History of Present Illness Consent: Risks, benefits, and alternatives have been discussed and questions answered. Patient agrees to proceed with procedure. Chief complaint: Thickened Endometrial Lining Narrative: Jessica Patterson is a 57 year old female with a thickened endometrium on pelvic ultrasound of 6mm. Patient denies vaginal bleeding. It was recommended to proceed with further workup with D&C hysteroscopy. Risks of infection, bleeding perforation, and possible pathology are discussed. Patient was given Cytotec 1000mcg daily for 7 days prior to the surgery due to prior severe stenosis and perforation. Patient underwent attempted hysteroscopy 06/13/22 which resulted in a false passage and a fundal perforation. Patient voices understanding and agrees to proceed. Review of Systems Review of Systems: not repeated day of surgery; patient states no changes in status PMFSH Past Medical History Medical History (Updated 06/13/22 @ 08:14 by Radha Merrill MD) Depression with anxiety (normal spontaneous vaginal delivery) x2 Surgical History Surgical History (Updated 07/25/22 @ 07:37 by Radha Merrill MD) Adhesive capsulitis of right shoulder Evaluation under anesthesia with manipulation May 11, 2020 H/O microdiscectomy H/O tubal ligation History of endometrial ablation History of hysteroscopy 06/13/22-perforation Family History Family History Father Aortic valve replaced Hypertension RLS (restless legs syndrome) Mother Cancer Sibling No problems noted. Sibling , suicide No problems noted. Other Cerebrovascular accident Family history of malignant neoplasm of breast Social History Social History Smoking status: Never smoker Second hand tobacco smoke exposure: Yes Alcohol intake: current Drinks per week: 10 Alcohol use details: occasional Substance use: never Substance use type: does not use Living arrangements: with family Occupation/Education: occupation Additional occupation/education comments: [employer] Gender identity (if verbalized by the patient): Female Spiritual care concerns: No Meds Home Medications and Allergies Home Medications Medication Instructions Recorded Confirmed Type bupropion HCl 150 mg 24 hr tablet, 150 mg PO QAM #90 tabs 06/22/22 Rx extended release (Wellbutrin XL) estradiol 0.05 mg/24 hr semiweekly 1 topical 2XW 07/18/22 History transdermal patch (Kiara) progesterone micronized 100 mg 100 mg PO DAILY 07/18/22 07/18/22 History capsule Allergies Allergy/AdvReac Type Severity Reaction Status Date / Time No Known Allergies Allergy Verified 07/18/22 14:49 Exam Const: General: healthy appearing and alert Orientation/consciousness: patient oriented x3 Resp: Effort & Inspection: normal respiratory effort GI: GI Palp: Yes Soft to palpation, No Tenderness to palpation present (GI) and No Palpable mass present : External Female Exam: normal external appearance Speculum Exam - Vagina: normal appearance of the vagina and normal vaginal discharge Speculum Exam - Cervix: normal appearance of the cervix Bimanual exam- vagina & uterus: uterine size normal and consistency normal Bimanual Exam- Adnexa, other: normal adnexae and No adnexal tenderness Neuro: General: patient oriented x3 Assessment and Plan Assessment and plan (1) Thickened endometrium: Code(s): R93.89 - Abnormal findings on diagnostic imaging of other specified body structures Status: Acute Assessment and Plan: Plan to proceed with D&C hysteroscopy
[2022-07-25 08:37] VITALS: BP 115/53; PULSE 90; RESP 16; TEMP 36.4; O2SAT 98
[2022-07-25] MEDS: LACTATED RINGERS 1,000 ML 30 ML IV CONT ×2 (08:50→10:16)
[2022-07-25] MEDS: ACETAMINOPHEN 500 MG TABLET 1000 MG PO (08:58)
--- NOTE | 2022-07-25 09:15 | P.PNAN_ITS ---
Anes - Initial Pre Proc Eval Procedure: Operation Date: 07/25/22 10:15 Proposed Procedures p Hysteroscopy with Dilation and Curettage - Radha Merrill MD Date/Time: 07/25/22 09:15 Surgeon: Radha Merrill MD Pre Op Diagnosis: Thickened Endometrial Lining Patient Data Age: 57 Gender: F Height: 1.65 m Weight: 58 kg Allergies Allergy/AdvReac Type Severity Reaction Status Date / Time No Known Allergies Allergy Verified 07/18/22 14:49 Home Medications Medication Instructions Recorded Confirmed Type bupropion HCl 150 mg 24 hr tablet, 150 mg PO QAM #90 tabs 06/22/22 Rx extended release (Wellbutrin XL) estradiol 0.05 mg/24 hr semiweekly 1 topical 2XW 07/18/22 History transdermal patch (Kiara) progesterone micronized 100 mg 100 mg PO DAILY 07/18/22 07/18/22 History capsule Patient hx anesthesia problems: post op nausea/vomiting Family hx anesthesia problems: none Results Review: All pre-operative results and documents have been reviewed as part of the pre- operative evaluation. [facility] Past Medical History Medical History Depression with anxiety (normal spontaneous vaginal delivery) x2 Surgical History Surgical History Adhesive capsulitis of right shoulder Evaluation under anesthesia with manipulation May 11, 2020 H/O microdiscectomy H/O tubal ligation History of endometrial ablation History of hysteroscopy 06/13/22-perforation Family History Family History Father Aortic valve replaced Hypertension RLS (restless legs syndrome) Mother Cancer Sibling No problems noted. Sibling , suicide No problems noted. Other Cerebrovascular accident Family history of malignant neoplasm of breast Social History Social History Smoking status: Never smoker Second hand tobacco smoke exposure: Yes Alcohol intake: current Drinks per week: 10 Alcohol use details: occasional Substance use: never Substance use type: does not use Living arrangements: with family Occupation/Education: occupation Additional occupation/education comments: [employer] Gender identity (if verbalized by the patient): Female Spiritual care concerns: No Anes - Eval Final PreProcedure Day of Procedure 07/25/22 09:15 Patient weight: normal Heart: regular rate and rhythm Lungs: clear to auscultation Airway: Mallampati scale class 1 Neurological: alert and oriented Last oral intake: >/= 8 hours ASA classification: II Emergent: no Anesthetic plan: proceed Anesthesia type and monitoring: general GIVS and standard monitoring Results Review: All pre-operative results and documents have been reviewed as part of the pre- operative evaluation. Informed Consent: The patient's anesthetic plan and its attendant risks and benefits were discussed with the patient/family/POA. Questions were solicited and answers provided to the satisfaction of the patient/family/POA.
[2022-07-25] MEDS: SCOPOLAMINE 1.5 MG PATCH TRANSDERM (09:45)
[2022-07-25] MEDS: LIDOCAINE HCL 1% LOCAL INJ 20 ML VIAL 10 ML INFILTRATE (10:04)
[2022-07-25 10:16] VITALS: BP 84/44; PULSE 76; RESP 12; O2SAT 99
--- NOTE | 2022-07-25 10:16 | W.PM.PROC2 ---
Procedure Note - Detailed Date of Procedure 07/25/22 Pre-op Diagnosis Thickened Endometrial Lining Post-op Diagnosis Same Procedure Performed D and C hysteroscopy Surgeon Radha Merrill MD Anesthesia MAC and Local Findings cervix is stenotic; endometrium has evidence of prior ablation with no gross pathology Description of Procedure The patient is taken to the operating room and placed under anesthesia in the dorsal lithotomy position. She was prepped and draped in the usual sterile fashion. [place] speculum was placed in the vagina and the cervix is grasped on the anterior lip with a tenaculum. The cervix is injected in each quadrant with 1% lidocaine. The uterus was attempted to be sounded and there is internal stenosis at 3cm. The small dilator is used and able to pass the internal stenosis. The uterus is sounded to 7cm. The hysteroscope was placed significant scarring is noted. As there were no abnormalities noted, the hysteroscope was removed slowly verifying no additional cavity opening. The sharp curette is used to curette the endometrium until a good uterine cry was noted in all areas. Minimal material was obtained consistent with the visual appearance. All instruments are removed. Patient is awakened from anesthesia and taken to recovery in stable condition. Sponge, needle, and instrument counts are correct per the OR staff. Estimated Blood Loss 5 Drains No Packing No Pathology Yes ( Endometrial curettings) Complications No immediate complications Condition Stable Disposition PACU
[2022-07-25 10:45] VITALS: BP 97/61; PULSE 70; RESP 16; O2SAT 99
[2022-07-25 11:15] VITALS: BP 133/87; PULSE 87; RESP 16
[2022-07-25 11:40] VITALS: BP 124/70; PULSE 73; RESP 16
== END 2022-07-25 11:43 | disposition home or self-care (01) ==
PROVIDERS: PCP Family Medicine; Visit Provider Obstetrics & Gynecology Gynecology
PROC: 0U5B8ZZ Destruction of Endometrium, Via Natural or Artificial Opening Endoscopic (ICD-10-PCS; CPT 58563; principal; 2022-07-25 10:15)
DX: R93.89 Abnormal findings on diagnostic imaging of other specified body structures (principal); N88.2 Stricture and stenosis of cervix uteri; F41.8 Other specified anxiety disorders
CPT/HCPCS: 58558; 88305; A9270; J2250; J2405; J2704; J3010; J7120

== ENCOUNTER 2023-04-03 15:47 | Outpatient (CLI) | payer OTHER, SELFPAY ==
--- NOTE | ~2023-04-03 | MM_ITS ---
EXAMINATION: MM screening scotty BI w rickie HISTORY: Screening TECHNIQUE: Craniocaudal and mediolateral oblique 3-D tomosynthesis images were obtained and synthetic 2-D images were generated. CAD analysis was submitted and interpreted. COMPARISON: Comparison to multiple prior studies sequentially, with oldest reviewed study dated 06/2017. BREAST PARENCHYMAL COMPOSITION: Dense: The breasts are heterogeneously dense, which may obscure small masses FINDINGS: There is a focal asymmetry superiorly in the left breast on MLO view. The right breast is s table without evidence for malignancy. IMPRESSION: 1. Focal asymmetry superiorly in the left breast on MLO view. 2. Additional mammographic views and possible breast ultrasound are recommended. BI-RADS Category 0: Incomplete: Needs additional imaging evaluation. Reviewed, dictated and finalized at location A. D ANIMAL VETERINARIAN IMPRESSION: 1. Focal asymmetry superiorly in the left breast on MLO view. 2. Additional mammographic views and possible breast ultrasound are recommended . BI-RADS Category 0: Incomplete: Needs additional imaging evaluation.
== END 2023-04-03 15:48 | disposition home or self-care (01) ==
LOC: ANHIMG 15:53
PROVIDERS: PCP Family Medicine; Visit Provider Obstetrics & Gynecology Gynecology
DX: Z12.31 Encounter for screening mammogram for malignant neoplasm of breast (principal); N64.89 Other specified disorders of breast
CPT/HCPCS: 77063; 77067

== ENCOUNTER 2023-05-08 10:16 | Outpatient (CLI) | payer OTHER, SELFPAY ==
--- NOTE | ~2023-05-08 | MMUS_ITS ---
EXAMINATION: MM diagnostic scotty LT w rickie, US breast LT limited HISTORY: Focal asymmetry reported superiorly and left breast on screening MLO view of April 03 TECHNIQUE: Additional 3-D tomosynthesis images of the left breast were performed and synthetic 2-D im ages were generated. CAD analysis was submitted and interpreted. High resolution upper outer and lowe r-outer quadrant left breast ultrasound was performed. COMPARISON: April 03, 2023 bilateral screening mammogram FINDINGS: MAMMOGRAPHIC FINDINGS: No suspicious focal mass, architectural distortion, malignant calcification, skin thickening or retra ction is evident. ULTRASOUND: There is a 3.4 mm cyst at 12:00 4 cm from nipple. There is some dense tissue at 5:00 3 cm from the nipple but no focal mass lesion or reproducible shad owing in orthogonal planes is noted. No suspicious mass or shadowing is evident. IMPRESSION: 1. Benign finding 2. Routine annual mammographic screening is recommended BI-RADS Category 2: Benign finding(s). Reviewed, dictated and finalized at location A. IMPRESSION: 1. Benign finding 2. Routine annual mammographic screening is recommended BI-RADS Category 2: Benign finding(s).
== END 2023-05-08 10:17 | disposition home or self-care (01) ==
LOC: ANHIMG 10:19
PROVIDERS: PCP Family Medicine; Visit Provider Obstetrics & Gynecology Gynecology
DX: R92.8 Other abnormal and inconclusive findings on diagnostic imaging of breast (principal)
CPT/HCPCS: 76642; 77061; 77065; G0279

== ENCOUNTER 2024-06-10 15:04 | Outpatient (CLI) | payer OTHER, SELFPAY ==
--- NOTE | ~2024-06-10 | MM_ITS ---
EXAMINATION: MM screening scotty BI w rickie HISTORY: Screening mammogram, family history of breast cancer in her mother. TECHNIQUE: Craniocaudal and mediolateral oblique 3-D tomosynthesis images were obtained and synthetic 2-D images were generated. CAD analysis was submitted and interpreted. COMPARISON: 04/03/2023, 12/16/2021, 10/16/2020, a 02/09/2019 BREAST PARENCHYMAL COMPOSITION:Dense: The breasts are heterogeneously dense, which may obscure small masses. FINDINGS: No suspicious mass, calcification, or architectural distortion are identified in either camila ast to suggest malignancy. There has been no suspicious interval change. IMPRESSION: No mammographic evidence of malignancy. Recommend routine screening mammography in one year. BI-RADS Category 1: Negative Reviewed, dictated and finalized at [facility].
--- OUTSIDE RECORDS SUMMARY | 2024-06-10 17:21 | XMS_ITS | Clinical Summary ---
Author Organization [facility] Address [address] [place] [address] Care Team Providers Care Ux Designer Name Role Phone None, Provider MD Primary Care Provider Unavaila ble Immunizations Immunization Administration Dates Next Due MODERNA COVID-19 (12+) MRNA, LNP-S, PF, 100 MCG/ 0.5 ML DOSE 06/25/2020,05/28/2020 MODERNA COVID-19 (POLLUTION CONTROL TECHNICIAN GUSTAVO MAGALY), MRNA, LNP-S, PF, 50 MCG/ 0.25 ML DOSE 02/17/2021 Social History Tobacco Use Types Packs/Day Years Used Date Smoking Tobacco: Never Assessed Comments Unknown Sex and Gender Information Value Date Recorded Sex Assigned at Not on file Legal Sex Female 11:25 AM CDT Gender Identity Not on file Sexual Orientation Not on file Plan of Treatment Health Maintenance Due Date Last Done Comments Cervical Cancer Screening Pa p Smear (Age 30 to 64) Every 3 Years 1964 Colorectal Cancer Screening Colonoscopy (10 Years) 1964 Annual Physical 05/08/1967 Hepatitis C 1982 DTaP, Tdap and Td Vaccines ( 1 - Tdap) 05/08/1983 Cervical Cancer Screening Pa p with HPV Testing (Age 30 to 64) Every 5 Years 1994 Cervical Cancer Screening wi th HPV 1994 Mammogram Screening 2004 Pneumococcal Vaccine: 50+ Years (1 of 1 - PCV) 2014 Zoster Vaccines (1 of 2) 2014 COVID-19 Vaccine (2023-2 5 season) 2023 02/17/2021, 06/25/2020, 05/28/2020 RSV Immunization or 60+ Years (1 - 1-dose 75+ series) 05/08/2039 Meningococcal B Vaccine Aged Out No l onger eligible based on patient's age to complete this topic Meningococcal Vaccine Aged Out No satya santos eligible based on patient's age to complete this topic RSV Immunizations Under 20 Months Aged Out No longer eligible b ased on patient's age to complete this topic Insurance [employer] [facility] Advance Directives Documents on File Type Date Recorded Patient Assurance Sourcing Manager Expl anation Power of Vat Operator 09/07/2023 8:26 AM Care Teams Ux Designer Relationship Specialty Start Date End Date None, Provider, PCP - General 05/26/20
--- OUTSIDE RECORDS SUMMARY | 2024-06-10 17:21 | XMS_ITS | Encounter Summary ---
Author Organization [facility] Health Address [address] [place] [address] Care Team Providers Care Ultrasound Technologist Name Role Phone Unavailable Primary Care Provider Unavailabl e Encounter Details Date Type Department Care Team (Late st Contact Info) Description 08/30/2018 Lab Requisition [facility] [address] 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 Answer Date of Assessment Author No 07/11/2014 9:39 AM Olamide Hess RN * Is person blind or have serious difficulty seeing? Answer Date of Assessment Author No 07/11/2014 9:39 AM Olamide Hess RN * Does person have serious difficulty walking/climbing stairs? Answer Date of Assessment Author No 07/11/2014 9:39 AM Olamide Hess RN * Does person have difficulty dressing/bathing? Answer Date of Assessment Author No 07/11/2014 9:39 AM Olamide Hess RN * Does person have difficulty doing errands alone? Answer Date of Assessment Author No 07/11/2014 9:39 AM CDT Olamide Mason RN documented as of this encounter Mental Status * Does person have difficulty concentrating/remembering/making decisions? Answer Entry Date Author No 07/11/2014 9:39 AM CDT Olamide Mason RN documented in this encounter Plan of Treatment Not on file documented as of this encounter Procedures Procedure Name Priority Date/Time Associated Diagnosis Comments DERMATOPATHOLOGY Routine 08/29/2018 12:0 0 AM CDT documented in this encounter Results * DERMATOPATHOLOGY (08/29/2018 12:00 AM CDT) Case Report Dermatopathology Report Case: [id number] Authorizing Provider: James Vidales MD Collected: 08/29/2018 12:00 AM Pathologist: Jaymie Bhat MD Received: 08/30/2018 11:40 AM Specimens: A) - Skin, right central plantar foot B) - Skin, left anterolateral calf 9 3:46 PM CDT DERMATOPATHOLOGY LABORATORY Final Diagnosis Specimen A. SKIN, right central plantar foot: COMPOUND MELANOCYTIC NEVUS, OF ACRAL SKIN (D22.71) Specimen B. SKIN, left anterolateral calf: ACTINIC KERATOSIS, LICHENOID (L57.0) 9 3:46 PM CDT DERMATOPATHOLOGY LABORATORY Clinical History A: R/O dys nevus. B: R/O ISK, AK, SCC. 9 3:46 PM CDT DERMATOPATHOLOGY LABORATORY Gross Description Specimen A: Received is one formalin filled container labeled with the patient's name and designated right central plantar foot. The specimen consists of a shave biopsy measuring [id number]. Jar 0. Specimen B: Received is one formalin filled container labeled with the patient's name and designated left anterolateral calf. The specimen consists of a shave biopsy measuring [id number]. Jar 0. 9 3:46 PM CDT DERMATOPATHOLOGY LABORATORY Microscopic Description Specimen A. SKIN, right central plantar foot: Sections show acral type skin with collections of melanocytes at the dermal-epidermal junction that are forming fairly well defined th ques. Melanocytes are also present in the upper dermis. Specimen B. SKIN, left anterolateral calf: There is focal parakeratosis. The lower half of the epidermis shows disorderly maturation of keratinocytes with nuclear pleomorphism. The dermis shows a band-like, chronic inflammatory infiltrate with occasional apoptotic keratinocytes and some basal vacuolar alteration. 9 3:46 PM CDT DERMATOPATHOLOGY LABORATORY Disclaimer An external and internal positive and negative controls are appropriate for the histochemical, immunohistochemical and immunofluorescence stain(s) in this case (if any), except where stated explicitly. The performance characteristics of the stain(s) cited in this report were developed and its performance characteristic determined by the Dermatopathology Laboratory at [facility], directed by Dr. Charla Bhat. These tests need not be, and therefore are not, approved by the [place] Food and Drug Administration. The tests are used for clinical purposes. Billing Codes Specimen Charges Stain Charges 98304 [id number] 1 1 9 3:46 PM CDT DERMATOPATHOLOGY LABORATORY Embedded Images 9 3:46 PM CDT DERMATOPATHOLOGY LABORATORY Pathology/Cytology TISSUE SPECIMEN FROM SKIN / Unknown 08/29/2018 08/30/2018 11:40 AM CDT Miscellaneous samples (specimen) TISSUE SPECIMEN FROM SKIN / Unknown 08/29/2018 08/30/2018 11:40 AM CDT James Vidales MD LAB - PATHOLOGY/CYTOLOGY ORD ERABLES Final Result DERMATOPATHOLOGY LABORATORY [facility] - Department of Dermatology [address] [place] [address], [address]th [place] [address], [facility] [phone] documented in this encounter Visit Diagnoses Not on filedocumented in this encounter
--- OUTSIDE RECORDS SUMMARY | 2024-06-10 17:21 | XMS_ITS | Clinical Summary ---
Author Organization [facility] [employer] Address [address] [place] [address] Care Team Providers Care Interventional Sale Consultant Name Role Phone Unavailable Primary Care Provider Unavailabl e Source Comments [facility] [employer],non-owned Affiliates and Associated Physician Practices is amultiple site organization consisting of ambulatory clinics and hospital sitesin [place], [place], [place] and [place]. This disclosure is being madepursuant to the Care Everywhere program and may not contain all information available regarding this patient. Last updated 17.[facility] [employer] Allergies No known active allergies Medications * Be aware that medications may not be up to date on this document. Alwaysverify current medications with the patient. drospirenone-eth inyl estradiol (LORYNA) 3-0.02 MG tablet Take 1 Tab by mouth once daily. 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 Gender Identity Not on file Sexual Orientation Not on file Last Filed Vital Signs Vital Sign Reading Time Taken Comments Blood Pressure 108/50 07/11/2014 11:50 AM CDT Pulse 94 07/11/2014 11:48 AM CDT Temperature 36.3 C (97.3 F) 07/11/2014 11:48 AM CDT Respiratory Rate 18 07/11/2014 11:48 AM CDT Oxygen Saturation 100% 07/11/2014 11:48 AM CDT Inhaled Oxygen Concentration - - Weight 60.3 kg (133 lb) 07/11/2014 9:22 AM CDT Height 165.1 cm (5' 5 ) 07/11/2014 9:22 AM CDT Body Mass Index 22.13 07/11/2014 9:22 AM CDT Plan of Treatment Health Maintenance Due Date Last Done Comments COLOGUARD (AGES 45-75) - COL ON CA SCREENING 1965 COLON MONITORING 1965 COLONOSCOPY - COLON CA SCREENING 1964 CT COLONOGRAPHY - COLON CA SCREENING 1965 Colorectal Cancer Screening 1965 FIT - COLON CA SCREENING 1965 FLEX SIG - COLON CA SCREENING 1965 LIPID TESTING 1965 MAMMOGRAM 1965 HIV SCREENING 05/08/1979 HEPATITIS C SCREENING 05/03/1982 DTAP/TDAP/TD VACCINES (1 - Tdap) 05/08/1983 PAP SMEAR 09/22/2000 09/22/1997 PNEUMOCOCCAL VACCINE 50+ (1 of 1 - PCV) 2014 ZOSTER VACCINE (1 of 2) 2014 COVID-19 VACCINE ( - 2023-2 5 season) 2023 DEPRESSION SCREENING 02/14/2024 INFLUENZA VACCINE (Season Ended) 2024 Respiratory Syncytial Virus (RSV) Vaccine Pt: or over 60 yrs (1 - 1-dose 75+ series) 05/08/2039 HEPATITIS B VACCINE Aged Out No longe r eligible based on patient's age to complete this topic HIB VACCINE Aged Out No longer eligi ble based on patient's age to complete this topic HPV VACCINE Aged Out No longer eligi ble based on patient's age to complete this topic MENINGOCOCCAL (Group B) VACC INE SHARED DECISION-MAKING Aged Out No longer eligibl e based on patient's age to complete this topic MENINGOCOCCAL GROUPS A/C/Y/W VACCINE Aged Out No longer eligible b ased on patient's age to complete this topic Procedures Procedure Name Priority Date/Time Associated Diagnosis Comments CYTOLOGY SMEAR PAP THIN PREP TANA 09/22/1997 2:00 PM CDT from Last 3 Months or Most Recently Relevant to Health Maintenance Results * CYTOLOGY SMEAR PAP THIN PREP (09/22/1997 2:00 PM CDT) Result CASE NUMBER [id number] Comment: ORDERING PHYSICIAN GUERO CAMPBELL SPECIMEN TYPE PAP Smear Date 09/22/1997 Procedure Cervical/Endocervical, 1 Vial for Thin Prep Received Specimen Adequacy Satisfactory for Evaluation but Limited No endocervical component in a non-atrophic cervical smear. Categorization Within Normal Limits Snomed. 09/25/1997 1124 <1> Software Engineering Specialist Bradford Thomas(ASCP) Pathologist. Nicole Granda M.D. PAP Footnote The PAP smear is only a screening procedure to aid in the detection of cervical cancer and its precursors. It is not a diagnostic procedure and should not be used as the sole means to detect cervical cancer. Both false negative and false positive results have been experienced. MISCELLANEOUS SAMPLES / Unknown 09/22/1997 2:00 PM CDT 09/23/1997 2:00 PM CDT Historical Provider LAB - PATHOLOGY/CYTOLOGY ORDERABLES Final Result from Last 3 Months or Most Recently Relevant to Health Maintenance Insurance [place] AETNA [facility]
== END 2024-06-10 15:05 | disposition home or self-care (01) ==
LOC: ANHIMG 15:12
PROVIDERS: PCP Family Medicine; Visit Provider Obstetrics & Gynecology Gynecology
DX: Z12.31 Encounter for screening mammogram for malignant neoplasm of breast (principal)
CPT/HCPCS: 77063; 77067

== ENCOUNTER 2024-06-24 12:49 | Outpatient (CLI) | payer OTHER, SELFPAY ==
--- NOTE | ~2024-06-24 | DEXA_ITS ---
Bone Density Report Name: SUREKHA JUSTIN Age: 59 Sex: Female Ethnicity: White Date of : 1965 Indication: postmenopausal; screening for osteoporosis; parental hip fracture; Referring Provider: ROSEMARY RENDON Study: Bone densitometry was performed. Exam Date: June 24, 2024 Accession number: [id number] Bone Density: Region BMD T-score Z-score Classification AP Spine(L1-L4) 1.132 0.8 2.2 Normal Femoral Neck (Left) 0.696 -1.4 -0.1 Osteopenia Total Hip (Left) 0.864 -0.6 0.3 Normal Femoral Neck (Right) 0.688 -1.5 -0.2 Osteopenia Total Hip (Right) 0.870 -0.6 0.4 Normal Total Hip Mean 0.867 -0.6 0.4 Normal World Health Organization criteria for BMD impression classify patients as: Normal (T-score at or above -1.0), Osteopenia (T-score between -1.0 and -2.5), or Osteoporosis (T-score at or below -2.5). 10-year Fracture Risk(1): Major Osteoporotic Fracture 14% Hip Fracture 0.6% Reported Risk Factors: [place] (), Neck BMD=0.696, BMI=21.0, parental fracture (1) FRAX(R) Version 3.08. Fracture probability calculated for an untreated patient. Fracture probability may be lower if the patient has received treatment. Previous Exams: Region Exam Age BMD T-score BMD Change BMD Change Date g/cm2 vs Baseline vs Previous AP Spine (L1-L4) 06/24/2024 59 1.132 0.8 0.026 (2.4%)* 0.026 (2.4%)* 12/16/2021 56 1.106 0.5 Total Hip(Left) 06/24/2024 59 0.864 -0.6 0.007 (0.8%) 0.007 (0.8%) 12/16/2021 56 0.857 -0.7 Total Hip(Right) 06/24/2024 59 0.870 -0.6 0.006 (0.7%) 0.006 (0.7%) 12/16/2021 56 0.864 -0.6 *Denotes significance at 95% confidence level, LSC for AP Spine = 0.022 g/cm2, LSC for Total Hip = 0.027 g/cm2 Clinical Information Provided by Patient: Parent has had a hip fracture Patient maximum height was 65 Menopause Age: 49 No regular weight bearing exercise Drinks caffeinated beverages Onset of menses at age 11 Number of children 2 Impression: The patient has low bone mass, based on the Right Femoral Neck T-score. The patient has an estimated ten-year risk of hip fracture of 0.6% and an estimated ten-year risk of major fracture of 14%, based on the WHO FRAX algorithm. The patient has risk factors, including: parental hip fracture. No significant bone loss was observed. Discussion: BONE DENSITY IS LOW AT ONE OR MORE SKELETAL SITES. This patient's lowest T-score is low at one or more skeletal sites. It meets the World Health Organization's (WHO) criteria for ?low bone mass? (T-score between -1.0 and -2.5). The patient's 10-year risk of fracture as calculated by FRAX is less than the threshold where pharmacological therapy is recommended by the National Osteoporosis Foundation (NOF). However, all treatment decisions require clinical judgment and consideration of individual patient factors, including patient preferences, comorbidities, previous drug use, risk factors not captured in the FRAX model (e.g., frailty, falls, vitamin D deficiency, increased bone turnover, interval significant decline in bone density) and possible under or overestimation of fracture risk by FRAX. The patient should follow a healthful lifestyle (good nutrition with adequate calcium and vitamin D, and appropriate weight-bearing exercise). Follow-Up: Consider repeating this study in 2 to 3 years to reassess this patient's status, or sooner if there is some new clinical indication. Reported by: LAMAR on 06/24/2024 1:25:00 PM. Reviewed, dictated and finalized at location A.
--- OUTSIDE RECORDS SUMMARY | 2024-06-24 12:54 | XMS_ITS | Encounter Summary ---
Author Organization [facility] Health Address [address] [facility] [place] [address] Care Team Providers Care Acetaldehyde Converter Operator Name Role Phone Unavailable Primary Care Provider Unavailabl e Encounter Details Date Type Department Care Team (Late st Contact Info) Description 08/30/2018 Lab Requisition [facility] [address] [facility] [place] [address] James Vidales MD [address] [place] [address] Social History Tobacco Use Types Packs/Day Years Used Date Smoking Tobacco: Never Smokeless Tobacco: Never Alcohol Use Standard Drinks/Week Comments Yes 0 (1 standard drink = 0.6 oz pur e alcohol) occasional Comments No Sex and Gender Information Value Date Recorded Sex Assigned at Not on file 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 Jar 0. Specimen B: Received is one formalin filled container labeled with the patient's name and designated left anterolateral calf. The specimen consists of a shave biopsy measuring [id number]. Jar 0. 9 3:46 PM CDT DERMATOPATHOLOGY [...] characteristic determined by the Dermatopathology Laboratory at [facility], directed by Dr. Charla Bhat. These tests need not be, and therefore are not, approved by the [place] Food and Drug Administration. The tests are used for clinical purposes. Billing Codes Specimen Charges Stain Charges 22423 [id number] 1 1 9 3:46 PM CDT DERMATOPATHOLOGY LABORATORY Embedded Images 9 3:46 PM CDT DERMATOPATHOLOGY LABORATORY Pathology/Cytology TISSUE SPECIMEN FROM SKIN / Unknown 08/29/2018 08/30/2018 11:40 AM CDT Miscellaneous samples (specimen) TISSUE SPECIMEN FROM SKIN / Unknown 08/29/2018 08/30/2018 11:40 AM CDT James Vidales MD LAB - PATHOLOGY/CYTOLOGY ORD ERABLES Final Result DERMATOPATHOLOGY LABORATORY [facility] - Department of Dermatology [address] [place] [address], [address]th [place] [address], [facility] [phone] documented in this encounter Visit Diagnoses Not on filedocumented in this encounter
--- OUTSIDE RECORDS SUMMARY | 2024-06-24 12:54 | XMS_ITS | Clinical Summary ---
Author Organization [facility] [employer] Address [address] [facility] [place] [address] Care Team Providers Care Computer Mechanic Name Role Phone Unavailable Primary Care Provider Unavailabl e Source Comments [facility] [employer],non-owned Affiliates and Associated Physician Practices is amultiple site organization consisting of ambulatory clinics and hospital sitesin [place], [place], [place] and [place]. This disclosure is being madepursuant to the Care Everywhere program and may not contain all information available regarding this patient. Last updated 17.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 Categorization Within Normal Limits Snomed. 09/25/1997 1124 <1> Drywall Sprayer Bradford Thomas(ASCP) Pathologist. Nicole Granda M.D. PAP [...] Relevant to Health Maintenance Insurance SAVA[place] AETNA [facility]
--- OUTSIDE RECORDS SUMMARY | 2024-06-24 12:54 | XMS_ITS | Clinical Summary ---
Author Organization [facility] Address [address] [place] [address] Care Team Providers Care Medical Translator Name Role Phone None, Provider MD Primary Care Provider Unavaila ble Immunizations Immunization Administration Dates Next Due MODERNA COVID-19 (12+) MRNA, LNP-S, PF, 100 MCG/ 0.5 ML DOSE 06/25/2020,05/28/2020 MODERNA COVID-19 (STEAM DRIER OPERATOR GUSTAVO MAGALY), MRNA, LNP-S, PF, 50 MCG/ [...] age to complete this topic Insurance [facility] Advance Directives Documents on File Type Date Recorded Patient Potato Chip Packaging Machine Operator Expl anation Power of Addiction Treatment Counselor 09/07/2023 8:26 AM Care Teams Medical Translator Relationship Specialty Start Date End Date None, Provider, PCP - General 05/26/20
== END 2024-06-24 12:50 | disposition home or self-care (01) ==
LOC: ANHIMG 12:51
PROVIDERS: PCP Family Medicine; Visit Provider Obstetrics & Gynecology Gynecology
DX: M85.852 Other specified disorders of bone density and structure, left thigh (principal); M85.851 Other specified disorders of bone density and structure, right thigh; Z78.0 Asymptomatic menopausal state
CPT/HCPCS: 77080

== ENCOUNTER 2024-08-02 13:35 | Outpatient (CLI) | payer OTHER, SELFPAY ==
--- NOTE | ~2024-08-02 | XR_ITS ---
EXAMINATION: XR lg joint inject/asp w image DATE: 08/02/2024 14:30 INDICATION: Adhesive capsulitis the left shoulder TECHNIQUE: A time-out was performed to verify the patient's name, date of , and procedure to b e performed. The procedure including the risks, benefits, and alternatives was discussed with the pat ient. Risks discussed included bleeding and infection. The patient understood the risks and agreed to proceed. The skin overlying the rotator cuff interval of the left glenohumeral joint was prepped an d draped in usual sterile fashion. Anesthetic was administered with 1% lidocaine subcutaneously. A 22 G needle was advanced under fluoroscopic guidance into the joint. Injection of 1 mL of Omnipaque 240 confirmed intra-articular position of the needle. Subsequently, injectate consisting of 5 mm a 4 :1 mixture of 1% lidocaine: 80 mg/mL Depo-Medrol for a total dosage of 80 mg Depo-Medrol was instille d. Washout of contrast was seen confirming intra-articular administration. The needle was removed and the entry site was cleaned and dressed. There were no immediate complications. Fluoroscopy exposure time was 2.5 minutes. The total number of images was 2. FINDINGS: Real-time fluoroscopy demonstrates the needle in the right glenohumeral joint. Patient's pa in prior to procedure:08/22. Patient's pain following the procedure: 06/22. IMPRESSION: 1. Successful right glenohumeral joint injection of local anesthetic and steroid with decrease in the patient's presenting pain. Reviewed, dictated and finalized at location B. IMPRESSION: 1. Successful right glenohumeral joint injection of local anesthetic and steroi d with decrease in the patient's presenting pain.
== END 2024-08-02 13:36 | disposition home or self-care (01) ==
PROVIDERS: PCP Family Medicine; Visit Provider Physician Assistant Surgical
DX: M75.02 Adhesive capsulitis of left shoulder (principal)
CPT/HCPCS: 20610; 77002; J1010; J2003; Q9966

== ENCOUNTER 2024-09-09 13:45 | Outpatient (RCR) | payer OTHER, SELFPAY ==
--- NOTE | 2024-08-12 17:47 | OPREHPOC ---
Outpatient Therapy Plan of Care This is a Multidisciplinary Plan of Care that may contain components documented by all disciplines (PT, OT, and ST.) PT Problem 1 PT Problem #1 Knowledge Deficit PT Goal 1 Goal / Goal Update Independent with HEP Target Visit 4 PT Goal 2 Goal / Goal Update Report no pain greater than 2/10 for 2 consecutive weeks Target Visit 8 PT Problem 2 PT Problem #2 Impaired Range of Motion PT Goal 1 Goal / Goal Update 1. Patient will improve left shoulder flexion rom to 170 degrees to improve active reach 2. Improve left shoulder flexion ROM to 8 degrees to improve self care and functional reach Target Visit 8 PT Problem 3 PT Problem #3 Impaired Strength PT Goal 1 Goal / Goal Update Improve gross left shoulder strength to 4+/5 Target Visit 8
--- NOTE | 2024-08-12 17:47 | PTOPEVAL1 ---
Assessment and note entered by Ryley Olivares, PT Evaluation Information Assessment Status Evaluation Diagnosis Adhesive capsulitis ICD-10 Condition Codes (PT) Pain in left shoulder M25.512 Onset February 2024 Subjective Information Reports that she just noticed in February that she could not do certain things. She was sidetracked by her husbands cancer diagnosis and didn't pursue anything. She has the most trouble with reaching away from her body and over her head. She feels a pinching in the front of her shoulder when she reaches. She occasionally has pain when putting pressure on her shoulder. The majority of the pain that she has had has been an ache. Reported Pain Level Pain Score 2: Self Report Assessment PT Clinical Summary Patient presents with signs and symptoms consistent with adhesive capsulitis and shoulder impingement. Patient has notable weakness and loss of functional motion resulting in decreased functional capacity and pain. She will benefit form skilled therapy to address these deficits to restore strength and self care. Plan of Care Interventions Manual Therapy,Neuro Re-education,Therapeutic Activities,Therapeutic Exercise PT Services Indicated Yes Treatment Frequency and 2x/week for 8 visits Duration These treatments will address the objective and functional deficits as defined above. The patient will be advanced safely and appropriately in order for the patient to progress towards his/her prior level of function. Additional exercises will be introduced and as well as a comprehensive home exercise program upon discharge, if needed, ?to ensure carryover of functional gains achieved in the clinic. This treatment plan has been reviewed and agreement upon by the patient.
--- NOTE | 2024-09-09 14:35 | OPREHPOC ---
Outpatient Therapy Plan of Care This is a Multidisciplinary Plan of Care that may contain components documented by all disciplines (PT, OT, and ST.) PT Problem 1 PT Problem #1 Knowledge Deficit PT Goal 1 Goal / Goal Update Independent with HEP Target Visit 4 Progress Met PT Goal 2 Goal / Goal Update Report no pain greater than 2/10 for 2 consecutive weeks Target Visit 8 Progress Met PT Problem 2 PT Problem #2 Impaired Range of Motion PT Goal 1 Goal / Goal Update 1. Patient will improve left shoulder flexion rom to 170 degrees to improve active reach 2. Improve left shoulder flexion ROM to 8 degrees to improve self care and functional reach Target Visit 8 Progress Met PT Problem 3 PT Problem #3 Impaired Strength PT Goal 1 Goal / Goal Update Improve gross left shoulder strength to 4+/5 Target Visit 8 Progress Met
--- NOTE | 2024-09-09 14:36 | PTOPDC ---
Assessment and note entered by Ryley Olivares, PT Evaluation Information Assessment Status Discharge Diagnosis Adhesive capsulitis ICD-10 Condition Codes (PT) Pain in left shoulder M25.512 Onset February 2024 Subjective Information Reports that overall she has seen great progress. She feels she can do most everything that she needs to do. No problems with sleeping. Reported Pain Level Pain Score 0: Self Report Assessment PT Clinical Summary Patient has met all goals for therapy and is suitable for discharge to [facility] at this time. She is compliant and consistent with [facility]. Plan of Care PT Services Indicated Yes
== END 2024-09-10 10:07 | disposition home or self-care (01) ==
LOC: ANHPT 13:45
PROVIDERS: PCP Family Medicine; Visit Provider Physician Assistant Surgical
DX: M75.82 Other shoulder lesions, left shoulder (principal)
CPT/HCPCS: 97110; 97140; 97161; 97530

== ENCOUNTER 2024-12-30 12:09 | Outpatient (CLI) | payer OTHER, SELFPAY ==
--- NOTE | ~2024-12-30 | CT_ITS ---
EXAM/PROCEDURE: CT abdomen pelvis w con HISTORY: R10.31 - Right lower quadrant pain COMPARISON: None available. TECHNIQUE: Contrast-enhanced CT of the abdomen and pelvis. FINDINGS: The bowel gas pattern is nonobstructive with no free air or pneumatosis seen. Trace amount of free fluid may be present in the lower pelvis. Several loops of small bowel possibly mild wall thickening versus nondistention. No grossly inflamed appendix seen. Mild diffuse mesenteric haziness opacification is present. Combined with unopacified bowel and minimal mesenteric fat, the appendix is not confidently visualized. No obviously inflamed appendix is seen. Numerous vascular channels in the left adnexal region noted along with prominent left ovarian vein. Anteflex uterus is heterogeneous in attenuation. Right adnexal region unremarkable. No hydroureteronephrosis or AAA. Gallbladder appears within normal limits. Liver spleen pancreas and stomach as well as adrenal glands appear normal. No bulky mesenteric or retroperitoneal lymphadenopathy or masses seen. Lung bases clear. Degenerative changes throughout the bones, and grade 1 anterolisthesis L4 and L5 with pars defect noted. IMPRESSION: 1. Prominent venous channels in the left adnexal region feeding into the left ovarian vein. Findings could be associated with occlusion of the right ovarian vein. Correlation with pelvic ultrasound recommended. 2. Mild wall thickening may be present involving the small and large bowel which could be associated with inflammatory or infectious enterocolitis. 3. Exam somewhat limited as above with the appendix not confidently visualized. No grossly inflamed appendix seen. Reviewed, dictated and finalized at location A. FARMER IMPRESSION: 1. Prominent venous channels in the left adnexal region feeding into the left o varian vein. Findings could be associated with occlusion of the right ovarian v ein. Correlation with pelvic ultrasound recommended. 2. Mild wall thickening may be present involving the small and large bowel whic h could be associated with inflammatory or infectious enterocolitis. 3. Exam somewhat limited as above with the appendix not confidently visualized. No grossly inflamed appendix seen.
[2024-12-30 12:25] LABS: Estimated Glomerular Filt Rate > 60
--- OUTSIDE RECORDS SUMMARY | 2024-12-30 21:20 | XMS_ITS | Clinical Summary ---
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), MRNA, LNP-S, PF, 50 MCG/ [...] Vaccines (1 of 2) 2014 COVID-19 Vaccine ( - 2024-2 6 season) 2024 02/17/2021, 06/25/2020, 05/28/2020 Influenza Adult (#1) 2024 RSV Immunization or 60+ Years (1 - 1-dose 75+ series) 05/08/2039 Hepatitis A Vaccines Aged Out No long er eligible based on patient's age to complete this topic Meningococcal B Vaccine Aged Out No l onger eligible based on patient's age to complete this topic Meningococcal Vaccine Aged Out No satya santos eligible based on patient's age to complete this topic RSV Immunizations Under 20 Months Aged Out No longer eligible b ased on patient's age to complete this topic Insurance [facility] [facility] Advance Directives Documents on File Type Date Recorded 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
== END 2024-12-30 12:10 | disposition home or self-care (01) ==
PROVIDERS: PCP Family Medicine; Visit Provider Physician Assistant Medical
DX: R10.31 Right lower quadrant pain (principal)
CPT/HCPCS: 74177; Q9967

== ENCOUNTER 2024-12-30 13:31 | Emergency (ER) | payer OTHER, SELFPAY ==
--- NOTE | ~2024-12-30 | US_ITS ---
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 RLQ pain Comparison: None Technique: Huerta-scale and color Doppler images were obtained. Findings: Uterus: Uterus anteverted 8 x 4.2 x 5.1 cm. Probable anterior uterine body fibroid 1.9 x 2.1 cm. . Endometrium 8 mm. Right Ovary:Right ovary 2 x 1 x 1.8 cm, no adnexal mass, normal flow. Left Ovary: Left ovary not visualized due to bowel gas. Free Fluid: None Impression: 1. Left ovary not identified. No acute process identified. Reviewed, dictated and finalized at location P. CARE ASSOCIATE Impression: 1. Left ovary not identified. No acute process identified.
[2024-12-30 14:20] VITALS: BP 151/83; PULSE 85; RESP 16; TEMP 36.6; O2SAT 100
--- NOTE | 2024-12-30 14:35 | ED.GENADULT ---
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 <SHAY Amaro Last Filed: 12/30/24 14:40> Time Seen by Provider: 12/30/24 14:30 <Paloma Acevedo PA-C - Last Filed: 12/30/24 14:40> Focused HPI: Patient is a 59-year-old female who presents the ED with report of right lower quadrant abdominal pain. Patient reports she has been having pain throughout her right lower abdomen since Monday. Pain has been intermittent but worsening. Saw her primary care doctor for this today and was referred for outpatient CT scan of her abdomen/pelvis. CT scan showed possible enterocolitis as well as possible occlusion of her left ovarian vein. Recommended pelvic ultrasound. She was sent here for further evaluation. Patient intermittent nausea, denies vomiting. Denies diarrhea, constipation, fevers, rectal bleeding. GENERAL: Uncomfortable-appearing, well-nourished, and in no acute distress. HEAD: Normocephalic, atraumatic. CHEST: Clear to auscultation. ?No respiratory distress. HEART: Regular rate and rhythm.? ABD: Diffuse tenderness throughout lower abdomen, RLQ NEURO: ?Alert and oriented x3. Patient screened in triage and initial orders placed.? ?Additional care and disposition to be based upon?diagnostic testing and treatment. <Paloma Acevedo PA-C - Last Filed: 12/30/24 14:40> Source: patient <SHAY Amaro Last Filed: 12/30/24 14:40> Mode of arrival: ambulatory <SHAY Amaro Last Filed: 12/30/24 14:40> Limitations: no limitations <SHAY Amaro Last Filed: 12/30/24 14:40> History of Present Illness HPI narrative: patient is 59-year-old female presents emergency department chief complaint of right lower quadrant pain. Patient reports she was seen by her primary care provider had a CT scan that showed a possible left ovarian vein occlusion the patient sent to the emergency department for further evaluation CT scan also showed infectious enterocolitis. <Steve Looney MD - Last Filed: 12/30/24 19:54> Related Data Home medications: Home Medications ?Medication ?Instructions ?Recorded ?Confirmed ?Last Taken ?Type estradiol 0.05 mg/24 hr semiweekly 1 topical 2XW 07/18/22 12/30/24 Unknown History transdermal patch (Kiara) progesterone micronized 100 mg 100 mg PO DAILY 07/18/22 12/30/24 Unknown History capsule <Paloma Acevedo PA-C - Last Filed: 12/30/24 14:40> Allergies/adverse reactions: Allergies Allergy/AdvReac Type Severity Reaction Status Date / Time No Known Allergies Allergy Verified 12/30/24 14:19 <Paloma Acevedo PA-C - Last Filed: 12/30/24 14:40> Review of Systems Review of Systems: A 10 system review of systems was completed on the patient and is negative except for what is stated in the HPI. Nursing and ancillary documentation was reviewed. <Steve Looney MD - Last Filed: 12/30/24 19:54> FORMERLY [facility], [facility] Past Medical History Medical History: Medical History (normal spontaneous vaginal delivery) x2 Depression with anxiety <Paloma Acevedo PA-C - Last Filed: 12/30/24 14:40> Surgical History Surgical History: Surgical History History of hysteroscopy 06/13/22-perforation History of endometrial ablation H/O tubal ligation Adhesive capsulitis of right shoulder Evaluation under anesthesia with manipulation May 11, 2020 H/O microdiscectomy <Paloma Acevedo PA-C - Last Filed: 12/30/24 14:40> Family History Family History: Family History Father Aortic valve replaced Hypertension RLS (restless legs syndrome) Mother Cancer Sibling No problems noted. Sibling , suicide No problems noted. Other Cerebrovascular accident Family history of malignant neoplasm of breast <Paloma Acevedo PA-C - Last Filed: 12/30/24 14:40> Social History Social History: Social History Smoking status: Never smoker Second hand tobacco smoke exposure: Yes Alcohol intake: current Drinks per week: 10 Alcohol use details: occasional Substance use: never Substance use type: does not use Current Housing: Decline to Answer Concerned About Future Housing: Decline to Answer Difficulty Paying Gas/Electric Bills: Decline to Answer Difficulty Paying for Meds: Decline to Answer Currently Unemployed: Decline to Answer Education: Decline to Answer Difficulty w/ Childcare or Family Care: Decline to Answer Living arrangements: with family Occupation/Education: occupation Additional occupation/education comments: [employer] Gender identity (if verbalized by the patient): Female Spiritual care concerns: No <Paloma Acevedo PA-C - Last Filed: 12/30/24 14:40> Exam Narrative: GENERAL: Well-appearing, well-nourished, and in no acute distress. HEAD: Normocephalic, atraumatic. EYES: PERRLA and EOMI. ENT: Nares clear, no rhinorrhea or epistaxis. Mucous membranes moist. NECK: Supple. CHEST: Clear to auscultation. No respiratory distress. HEART: Regular rate and rhythm. No murmur heard. Normal peripheral pulses. ABDOMEN: Soft, Mild tenderness to palpation right lower quadrant, nondistended, normal active bowel sounds. EXTREMITIES: Normal range of motion. No edema. SKIN: Warm, dry, no rash. NEURO: No focal deficits. Alert and oriented x3. PSYCH: Normal mood and affect. <Steve Looney MD - Last Filed: 12/30/24 19:54> Course Vital Signs Vital signs: Vital Signs Temperature 36.6 C 12/30/24 14:20 Pulse Rate 85 12/30/24 14:20 Respiratory Rate 16 12/30/24 14:20 Blood Pressure 151/83 H 12/30/24 14:20 Pulse Oximetry 100 12/30/24 14:20 Oxygen Delivery Room Air 12/30/24 14:20 Temperature 36.6 C 12/30/24 14:20 Pulse Rate 69 12/30/24 18:58 Respiratory Rate 15 12/30/24 18:58 Blood Pressure 147/77 H 12/30/24 18:58 Pulse Oximetry 99 12/30/24 18:58 Oxygen Delivery Room Air 12/30/24 14:20 <Paloma Acevedo PA-C - Last Filed: 12/30/24 14:40> Vital Signs Temperature 36.6 C 12/30/24 14:20 Pulse Rate 85 12/30/24 14:20 Respiratory Rate 16 12/30/24 14:20 Blood Pressure 151/83 H 12/30/24 14:20 Pulse Oximetry 100 12/30/24 14:20 Oxygen Delivery Room Air 12/30/24 14:20 Temperature 36.6 C 12/30/24 14:20 Pulse Rate 69 12/30/24 18:58 Respiratory Rate 15 12/30/24 18:58 Blood Pressure 147/77 H 12/30/24 18:58 Pulse Oximetry 99 12/30/24 18:58 Oxygen Delivery Room Air 12/30/24 14:20 <Steve Looney MD - Last Filed: 12/30/24 19:54> Medical Decision Making MDM Narrative Medical decision making narrative: MSE by FERDINAND in triage <Paloma Acevedo PA-C - Last Filed: 12/30/24 14:40> MSE by FERDINAND in triage CT scan was reviewed from outpatient visit that showed no evidence of right lower quadrant inflammation. There is no signs acute appendicitis pelvic ultrasound was obtained that showed Uterus: Uterus anteverted 8 x 4.2 x 5.1 cm. Probable anterior uterine body fibroid 1.9 x 2.1 cm. . Endometrium 8 mm. Right Ovary:Right ovary 2 x 1 x 1.8 cm, no adnexal mass, normal flow. Left Ovary: Left ovary not visualized due to bowel gas. Free Fluid: None Impression: 1. Left ovary not identified. No acute process identified. the patient will be started on Cipro and Flagyl for possible infectious enterocolitis patient was also given antispasmodics and anti nausea medication. The patient should follow-up with her primary care provider was also given information for GI as she may need a colonoscopy <Steve Looney MD - Last Filed: 12/30/24 19:54> Vital Signs Vital Signs: Vital Signs Temperature 36.6 C 12/30/24 14:20 Pulse Rate 85 12/30/24 14:20 Respiratory Rate 16 12/30/24 14:20 Blood Pressure 151/83 H 12/30/24 14:20 Pulse Oximetry 100 12/30/24 14:20 Oxygen Delivery Room Air 12/30/24 14:20 Temperature 36.6 C 12/30/24 14:20 Pulse Rate 69 12/30/24 18:58 Respiratory Rate 15 12/30/24 18:58 Blood Pressure 147/77 H 12/30/24 18:58 Pulse Oximetry 99 12/30/24 18:58 Oxygen Delivery Room Air 12/30/24 14:20 <Paloma Acevedo PA-C - Last Filed: 12/30/24 14:40> Vital Signs Temperature 36.6 C 12/30/24 14:20 Pulse Rate 85 12/30/24 14:20 Respiratory Rate 16 12/30/24 14:20 Blood Pressure 151/83 H 12/30/24 14:20 Pulse Oximetry 100 12/30/24 14:20 Oxygen Delivery Room Air 12/30/24 14:20 Temperature 36.6 C 12/30/24 14:20 Pulse Rate 69 12/30/24 18:58 Respiratory Rate 15 12/30/24 18:58 Blood Pressure 147/77 H 12/30/24 18:58 Pulse Oximetry 99 12/30/24 18:58 Oxygen Delivery Room Air 12/30/24 14:20 <Steve Looney MD - Last Filed: 12/30/24 19:54> Lab Data Result diagrams: 12/30/24 14:42 12/30/24 14:42 <Paloma Acevedo PA-C - Last Filed: 12/30/24 14:40> Labs: Lab Results 12/30/24 12/30/24 Range/Units 14:42 15:38 WBC 13.6 H (4.5-10.0) K/mm3 RBC 4.59 (4.2-5.4) M/mm3 Hgb 14.0 (12.0-15.0) g/dL Hct 41.9 (37.0-47.0) % MCV 91.3 (80-100) fl MCH 30.5 (26-34) pg MCHC 33.4 (32-36) g/dl RDW 12.3 (11.5-14.5) % Plt Count 214 (150-375) k/mm3 MPV 11.3 H (7.4-10.4) fl Immature Gran % (Auto) 0.2 (0-0.5) % Neut % (Auto) 66.7 (45.5-73.1) % Lymph % (Auto) 24.0 (18.3-44.2) % Converse % (Auto) 7.9 (2.6-8.5) % Eos % (Auto) 0.8 (0-4.4) % Baso % (Auto) 0.4 (0.2-1.2) % Lymph # (Auto) 3.26 H (0.9-3.2) K/mm3 Converse # (Auto) 1.1 H (0.1-0.6) K/mm3 Eos # (Auto) 0.1 (0-0.3) K/mm3 Baso # (Auto) 0.1 (0.0-0.1) K/mm3 Abs Immat Gran (auto) 0.03 (0.00-0.031) K/mm3 Absolute Neuts (auto) 9.0 H (1.3-6.7) K/mm3 Absolute Nucleated RBC 0.000 (0.0-0.012) K/mm3 Nucleated RBC % 0.0 (0.0-0.2) % Sodium 136 L (137-145) mmol/L Potassium 3.8 (3.4-5.0) mmol/L Chloride 100 (98-107) mmol/L Carbon Dioxide 27 (22-30) mmol/L Anion Gap 9 (4-12) mmol/L BUN 14 (7-17) mg/dL Creatinine 0.76 (0.7-1.0) mg/dL Estim Creat Clear Calc 59 ml/min Estimated GFR > 60 (59 - ) Glucose 83 (65-110) mg/dL Calcium 9.1 (8.4-10.2) mg/dL Total Bilirubin 0.8 (0.2-1.3) mg/dL AST 34 (14-36) U/L ALT 20 (6-35) U/L Alkaline Phosphatase 64 (38-126) U/L Total Protein 8.0 (6.3-8.2) g/dL Albumin 4.6 (3.5-5.1) g/dL Urine Color Yellow (Yellow) Urine Appearance Clear (Clear) Urine pH 5.0 (5.0-9.0) Ur Specific Halma > 1.045 H (1.001-1.035) Urine Protein Negative (Negative) mg/dL Urine Glucose (UA) Negative (Negative) mg/dL Urine Ketones 2+ H (Negative) mg/dL Ur Blood (Man) Negative (Negative) Urine Nitrate Negative (Negative) Urine Bilirubin Negative (Negative) Urine Urobilinogen 0.2 (<2.0) mg/dL Leukocyte Esterase Rfl Negative (Negative) MORRIS/UL <Paloma Acevedo PA-C - Last Filed: 12/30/24 14:40> Lab Results 12/30/24 12/30/24 Range/Units 14:42 15:38 WBC 13.6 H (4.5-10.0) K/mm3 RBC 4.59 (4.2-5.4) M/mm3 Hgb 14.0 (12.0-15.0) g/dL Hct 41.9 (37.0-47.0) % MCV 91.3 (80-100) fl MCH 30.5 (26-34) pg MCHC 33.4 (32-36) g/dl RDW 12.3 (11.5-14.5) % Plt Count 214 (150-375) k/mm3 MPV 11.3 H (7.4-10.4) fl Immature Gran % (Auto) 0.2 (0-0.5) % Neut % (Auto) 66.7 (45.5-73.1) % Lymph % (Auto) 24.0 (18.3-44.2) % Converse % (Auto) 7.9 (2.6-8.5) % Eos % (Auto) 0.8 (0-4.4) % Baso % (Auto) 0.4 (0.2-1.2) % Lymph # (Auto) 3.26 H (0.9-3.2) K/mm3 Converse # (Auto) 1.1 H (0.1-0.6) K/mm3 Eos # (Auto) 0.1 (0-0.3) K/mm3 Baso # (Auto) 0.1 (0.0-0.1) K/mm3 Abs Immat Gran (auto) 0.03 (0.00-0.031) K/mm3 Absolute Neuts (auto) 9.0 H (1.3-6.7) K/mm3 Absolute Nucleated RBC 0.000 (0.0-0.012) K/mm3 Nucleated RBC % 0.0 (0.0-0.2) % Sodium 136 L (137-145) mmol/L Potassium 3.8 (3.4-5.0) mmol/L Chloride 100 (98-107) mmol/L Carbon Dioxide 27 (22-30) mmol/L Anion Gap 9 (4-12) mmol/L BUN 14 (7-17) mg/dL Creatinine 0.76 (0.7-1.0) mg/dL Estim Creat Clear Calc 59 ml/min Estimated GFR > 60 (59 - ) Glucose 83 (65-110) mg/dL Calcium 9.1 (8.4-10.2) mg/dL Total Bilirubin 0.8 (0.2-1.3) mg/dL AST 34 (14-36) U/L ALT 20 (6-35) U/L Alkaline Phosphatase 64 (38-126) U/L Total Protein 8.0 (6.3-8.2) g/dL Albumin 4.6 (3.5-5.1) g/dL Urine Color Yellow (Yellow) Urine Appearance Clear (Clear) Urine pH 5.0 (5.0-9.0) Ur Specific Halma > 1.045 H (1.001-1.035) Urine Protein Negative (Negative) mg/dL Urine Glucose (UA) Negative (Negative) mg/dL Urine Ketones 2+ H (Negative) mg/dL Ur Blood (Man) Negative (Negative) Urine Nitrate Negative (Negative) Urine Bilirubin Negative (Negative) Urine Urobilinogen 0.2 (<2.0) mg/dL Leukocyte Esterase Rfl Negative (Negative) MORRIS/UL <Steve Looney MD - Last Filed: 12/30/24 19:54> Discharge Plan Discharge Clinical Impression: Abdominal pain, Enterocolitis <Paloma Acevedo PA-C - Last Filed: 12/30/24 14:40> Patient Disposition: Home <Paloma Acevedo PA-C - Last Filed: 12/30/24 14:40> Condition: Stable <SHAY Amaro Last Filed: 12/30/24 14:40> Instructions: Antibiotic Form, Abdominal Pain (ED), Colitis (ED) <SHAY Amaro Last Filed: 12/30/24 14:40> Patient Language: Italian <SHAY Amaro Last Filed: 12/30/24 14:40> Prescriptions: New metronidazole 500 mg tablet 500 mg PO Q8H 10 Days Qty: 30 0RF ciprofloxacin HCl 500 mg tablet 500 mg PO Q12H 10 Days Qty: 20 0RF dicyclomine 20 mg tablet 20 mg PO QID PRN (Reason: abdominal discomfort) Qty: 20 0RF ondansetron 4 mg tablet,disintegrating 4 mg PO Q8H PRN (Reason: nausea and vomiting) Qty: 10 0RF No Action estradiol [Kiara] 0.05 mg/24 hr patch semiweekly 1 topical 2XW progesterone micronized 100 mg capsule 100 mg PO DAILY bupropion HCl [Wellbutrin XL] 150 mg tablet extended release 24 hr 150 mg PO QAM Qty: 90 1RF Rx Instructions: short supply <Paloma Acevedo PA-C - Last Filed: 12/30/24 14:40> Follow-up/Referrals: Nathan Rodríguez MD [Primary Care Provider, Family Practice] Griffin Olivia MD [Physician, Gastroenterology] <Paloma Acevedo PA-C - Last Filed: 12/30/24 14:40> Time of Disposition: 19:50 <Paloma Acevedo PA-C - Last Filed: 12/30/24 14:40> 19:50 <Steve Looney MD - Last Filed: 12/30/24 19:54>
[2024-12-30 15:05] LABS: Hematocrit 41.9 % (37.0-47.0); Hemoglobin 14.0 g/dL (12.0-15.0); Immature Granulocyte Percent A 0.2 % (0-0.5); Lymphocytes Absolute Auto 3.26 K/mm3 (0.9-3.2); Mean Corpuscular HGB Conc 33.4 g/dl (32-36); Mean Corpuscular Hemoglobin 30.5 pg (26-34); Mean Corpuscular Volume 91.3 fl (80-100); Nucleated Red Blood Cells Absolute Auto 0.000 K/mm3 (0.0-0.012); Nucleated Red Blood Cells Perc 0.0 % (0.0-0.2); Platelet Count Result 214 k/mm3 (150-375); Red Blood Count 4.59 M/mm3 (4.2-5.4); White Blood Count 13.6 K/mm3 (4.5-10.0)
[2024-12-30 15:15] LABS: Alanine Aminotransferase 20 U/L (6-35); Albumin Level 4.6 g/dL (3.5-5.1); Alkaline Phosphatase 64 U/L (38-126); Anion Gap 9 mmol/L (4-12); Aspartate Amino Transferase 34 U/L (14-36); Bilirubin,Total 0.8 mg/dL (0.2-1.3); Blood Urea Nitrogen 14 mg/dL (7-17); Calcium 9.1 mg/dL (8.4-10.2); Carbon Dioxide 27 mmol/L (22-30); Chloride 100 mmol/L (98-107); Estimated CRCL calculation 59 ml/min; Estimated Glomerular Filt Rate > 60; Glucose 83 mg/dL (65-110); Potassium 3.8 mmol/L (3.4-5.0); Sodium 136 mmol/L (137-145); Total Protein 8.0 g/dL (6.3-8.2)
[2024-12-30] MEDS: ACETAMINOPHEN 500 MG TABLET 1000 MG PO (15:32)
[2024-12-30 15:49] LABS: Add Urine Microscopic? NO; Appearance Urine Clear (Clear); Glucose Urine UA Negative (Negative); Leukocyte Esterase Ur Negative LEU/UL (Negative); Nitrate Urine Negative (Negative); Specific Grav Ur > 1.045 (1.001-1.035)
[2024-12-30 18:58] VITALS: BP 147/77; PULSE 69; RESP 15; O2SAT 99
[2024-12-30] MEDS: CIPROFLOXACIN 500 MG TAB PO (19:57)
== END 2024-12-30 20:08 | disposition home or self-care (01) ==
LOC: ANHED 19:57
PROVIDERS: Physician Assistant; Emergency Provider Emergency Medicine; PCP Family Medicine
DX: K52.9 Noninfective gastroenteritis and colitis, unspecified (principal); F41.8 Other specified anxiety disorders
CPT/HCPCS: 36415; 76856; 80053; 81003; 85025; 99284; A9270